=== PATIENT | male | born 1980 | race Caucasian/White ===

== ENCOUNTER 2018-12-06 06:26 | Emergency (ER) | payer BC ==
[2018-12-06 06:39] VITALS: BP 135/94; PULSE 67; RESP 18; TEMP 98.4
[2018-12-06] MEDS ORDERED: cefTRIAXone 250 MG VIAL IM STA (06:47)
[2018-12-06] MEDS ORDERED: AZITHROMYCIN 500 MG TAB PO STA (06:47)
--- NOTE | 2018-12-06 06:48 | ED ---
Male Urogenital HPI - General Chief complaint: Urogenital Stated complaint: "Private Matter" Time Seen by Provider: 12/06/18 06:38 Source: patient, family Mode of arrival: ambulatory Limitations: no limitations - History of Present Illness Initial comments: 38yo male with no significant PMH presenting for cc of dysuria 2 weeks. Patient states he has had dysuria for the past 2 weeks. He thought he just had a urinary tract infection. Patient has recently heard rumors that his significant other is to promiscuous and he is concerned this could be related to an STD. She denies any testicular pain or swelling denies abdominal pain. Denies fevers. Patient denies hematuria or back pain. Remaining ROS (-). Upon arrival patient appears well and remaining ROS (-). - Related Data Home Medications Medication Instructions Recorded Confirmed Dextroamphetamine/Amphetamine 30 mg PO DAILY@1400 12/06/18 12/06/18 [Dextroamp-Amphetamin 30 mg Tab] Lisdexamfetamine Dimesylate 70 mg PO DAILY 12/06/18 12/06/18 [Vyvanse] Omeprazole 40 mg PO DAILY 12/06/18 12/06/18 Allergies Allergy/AdvReac Type Severity Reaction Status Date / Time No Known Allergies Allergy Verified 12/06/18 06:53 Review of Systems ROS Statement: Those systems with pertinent positive or pertinent negative responses have been documented in the HPI. ROS Other: All systems not noted in ROS Statement are negative. Past Medical History Past Medical History: No Reported History History of Any Multi-Drug Resistant Organisms: None Reported Past Surgical History: No Surgical Hx Reported Past Psychological History: No Psychological Hx Reported Smoking Status: Current every day smoker Past Alcohol Use History: Occasional Past Drug Use History: None Reported General Exam - General Exam Comments Initial Comments: General: The patient is awake and alert, in no distress, and does not appear acutely ill. Eye: Pupils are equal, round, extra-ocular movements are intact. No nystagmus. There is normal conjunctiva bilaterally. No signs of icterus. Cardiovascular: There is a regular rate and rhythm. No murmur, rub or gallop is appreciated. Respiratory: Lungs are clear to auscultation, respirations are non-labored, breath sounds are equal. No wheezes, stridor, rales, or rhonchi. Gastrointestinal: Soft, non-distended, non-tender abdomen without masses or organomegaly noted. There is no rebound or guarding present Neurological: A&O x 3. CN II-XII intact grossly, There are no obvious motor or sensory deficits. Coordination appears grossly intact. Speech is normal. Skin: Skin is warm and dry and no rashes or lesions are noted. Psychiatric: Cooperative, appropriate mood & affect, normal judgment. Limitations: no limitations Course Vital Signs 12/06/18 06:37 Temperature 98.4 F Pulse Rate 67 Respiratory 18 Rate Blood Pressure 135/94 O2 Sat by Pulse 97 Oximetry Medical Decision Making - Medical Decision Making Patient presenting to the ER for dysuria x 2 weeks. Concern for STI. UA no signs of infection. No testicular/abdominal/flank complaints. Denies discharge. Treated with ceftriaxone and azithromycin. Patient has no other concerns. Patient discharged appearing well. Return parameters and f/u discussed. - Lab Data Lab Results 12/06/18 Range/Units 06:40 Urine Color Yellow Urine Appearance Clear (Clear) Urine pH 6.5 (5.0-8.0) Ur Specific [place] 1.013 (1.001-1.035) Urine Protein Negative (Negative) Urine Glucose (UA) Negative (Negative) Urine Ketones Negative (Negative) Urine Blood Negative (Negative) Urine Nitrite Negative (Negative) Urine Bilirubin Negative (Negative) Urine Urobilinogen <2.0 (<2.0) mg/dL Ur Leukocyte Esterase Negative (Negative) Disposition Clinical Impression: Dysuria Disposition: HOME SELF-CARE Condition: Good Instructions (If sedation given, give patient instructions): Sexually Transmitted Diseases (ED) Additional Instructions: Please use medication as discussed. Please follow-up with family doctor in the next 2 days. Please return to emergency room if the symptoms increase or worsen or for any other concerns. Is patient prescribed a controlled substance at d/c from ED?: No Referrals: Checo Beltran MD [Primary Care Provider] - 1-2 days Time of Disposition: 06:56
[2018-12-06 06:55] LABS: Appearance,Urine Clear (Clear); Bilirubin,Urine Negative (Negative); Blood,Urine Negative (Negative); Color,Urine Yellow; Glucose,Urine (UA) Negative (Negative); Ketones,Urine Negative (Negative); Leukocyte Esterase,Urine Negative (Negative); Nitrite,Urine Negative (Negative); PH, Urine 6.5 (5.0-8.0); Protein,Urine Negative (Negative); Specific Gravity,Urine 1.013 (1.001-1.035); Urobilinogen,Urine <2.0 mg/dL (<2.0)
[2018-12-07 15:16] LABS: N. gonorrhoeae,PCR Negative (Neg,Equiv); Neisseria Source Urine
[2018-12-07 15:21] LABS: C. trachomatis,PCR Negative (Neg,Equiv); Chlamydia trachomatis Source Urine
== END 2018-12-06 07:00 | disposition home or self-care (01) ==
LOC: EC 06:26
DX: R30.0 Dysuria (principal); F17.200 Nicotine dependence, unspecified, uncomplicated
CPT/HCPCS: 81003; 87491; 87591; 99283; 96372; J0696

== ENCOUNTER 2019-10-22 22:38 | Emergency (ER) | payer OTHER ==
[2019-10-22 23:12] LABS: Basophils % (A) 0 %; Eosinophils # (A) 0.2 k/uL (0-0.7); Eosinophils % (A) 2 %; HCT 44.7 % (39.0-53.0); HGB 15.6 gm/dL (13.0-17.5); Lymphocytes # (A) 0.6 k/uL (1.0-4.8); Lymphocytes % (A) 9 %; MCH 32.8 pg (25.0-35.0); MCHC 34.8 g/dL (31.0-37.0); MCV 94.1 fL (80.0-100.0); Mean Platelet Volume 8.2; Monocytes # (A) 0.3 k/uL (0-1.0); Monocytes % (A) 5 %; Neutrophils # (A) 5.5 k/uL (1.3-7.7); Neutrophils % (A) 83 %; Platelet Count 165 k/uL (150-450); RBC 4.75 m/uL (4.30-5.90); RDW 12.6 % (11.5-15.5); WBC 6.6 k/uL (3.8-10.6)
[2019-10-22 23:21] LABS: ALT 45 U/L (4-49); AST 37 U/L (17-59); African American GFR (CKD) >90 (>60 ml/min/1.73 sqM); Albumin 4.2 g/dL (3.5-5.0); Alkaline Phosphatase 102 U/L (38-126); Anion Gap 8 mmol/L; Blood Urea Nitrogen 18 mg/dL (9-20); Carbon Dioxide 23 mmol/L (22-30); Chloride 105 mmol/L (98-107); Glucose 114 mg/dL (74-99); Non-African American GFR(CKD) 83 (>60 ml/min/1.73 sqM); Potassium 3.7 mmol/L (3.5-5.1); Sodium 136 mmol/L (137-145); Total Bilirubin 0.4 mg/dL (0.2-1.3); Total Protein 6.7 g/dL (6.3-8.2)
--- NOTE | 2019-10-22 23:21 | ED ---
Weakness HPI - General Chief complaint: Weakness Stated complaint: Poss Stroke Time Seen by Provider: 10/22/19 22:59 Source: patient, family Mode of arrival: wheelchair Limitations: no limitations - History of Present Illness Initial comments: This patient is a 39-year-old man who presents to have evaluation for generalized weakness and fatigue. He also has a number of other complaints. 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 He has been drinking a lot of water but noticed that his urine output has been less than he would've expected. He is not feeling urge to urinate. He thinks that he is dehydrated. He has also been having sinus congestion and a mild cough for 2 days. He is having some bilateral hip and leg pains that he describes as mild to moderate, constant, burning, and worse with exertion. He thinks that it may be due to work but he is not sure. MD Complaint: generalized weakness -: days(s) Location: generalized Severity: moderate Quality: other (Burning) Consistency: constant Improves with: none Worsens with: movement - Related Data Home Medications Medication Instructions Recorded Confirmed Dextroamphetamine/Amphetamine 30 mg PO DAILY@1400 12/06/18 12/06/18 [Dextroamp-Amphetamin 30 mg Tab] Lisdexamfetamine Dimesylate 70 mg PO DAILY 12/06/18 12/06/18 [Vyvanse] Omeprazole 40 mg PO DAILY 12/06/18 12/06/18 Allergies Allergy/AdvReac Type Severity Reaction Status Date / Time No Known Allergies Allergy Verified 10/22/19 22:43 Review of Systems ROS Statement: Those systems with pertinent positive or pertinent negative responses have been documented in the HPI. ROS Other: All systems not noted in ROS Statement are negative. Constitutional: Reports: fever, weakness. Denies: chills ENT: Reports: congestion. Denies: ear pain, throat pain, hearing loss Respiratory: Reports: cough. Denies: dyspnea, wheezes, hemoptysis Cardiovascular: Denies: chest pain, palpitations, edema Gastrointestinal: Denies: abdominal pain, nausea, vomiting, diarrhea, constipation Genitourinary: Denies: dysuria, hematuria Musculoskeletal: Denies: back pain Skin: Denies: rash Neurological: Denies: headache, weakness, numbness Past Medical History Past Medical History: No Reported History History of Any Multi-Drug Resistant Organisms: None Reported Past Surgical History: Orthopedic Surgery Additional Past Surgical History / Comment(s): left shoulder surgery/ nose surgery/ left knee surgery Past Psychological History: No Psychological Hx Reported Smoking Status: Former smoker Past Alcohol Use History: Occasional Past Drug Use History: None Reported General Exam Limitations: no limitations General appearance: alert, in no apparent distress Head exam: Present: atraumatic, normocephalic Eye exam: Present: normal appearance. Absent: scleral icterus, conjunctival injection ENT exam: Present: normal oropharynx Neck exam: Present: normal inspection, full ROM Respiratory exam: Present: normal lung sounds bilaterally. Absent: respiratory distress, wheezes, rales, rhonchi, stridor Cardiovascular Exam: Present: regular rate, normal rhythm, normal heart sounds. Absent: systolic murmur, diastolic murmur, rubs, gallop GI/Abdominal exam: Present: soft. Absent: distended, tenderness, guarding, rebound, rigid Extremities exam: Present: normal inspection, normal capillary refill. Absent: pedal edema, calf tenderness Back exam: Present: normal inspection. Absent: CVA tenderness (R), CVA tenderne ss (L) Neurological exam: Present: alert Skin exam: Present: warm, dry, intact, normal color. Absent: rash Course Vital Signs 10/22/19 10/23/19 10/23/19 22:41 00:17 01:00 Temperature 98.6 F Pulse Rate 94 66 68 Respiratory 20 17 17 Rate Blood Pressure 135/72 128/81 144/88 O2 Sat by Pulse 94 L 98 96 Oximetry Medical Decision Making - Lab Data Result diagrams: 10/22/19 22:50 10/22/19 22:50 Lab Results 10/22/19 10/22/19 10/22/19 Range/Units 22:50 22:50 22:50 WBC 6.6 (3.8-10.6) k/uL RBC 4.75 (4.30-5.90) m/uL Hgb 15.6 (13.0-17.5) gm/dL Hct 44.7 (39.0-53.0) % MCV 94.1 (80.0-100.0) fL MCH 32.8 (25.0-35.0) pg MCHC 34.8 (31.0-37.0) g/dL RDW 12.6 (11.5-15.5) % Plt Count 165 (150-450) k/uL Neutrophils % 83 % Lymphocytes % 9 % Monocytes % 5 % Eosinophils % 2 % Basophils % 0 % Neutrophils # 5.5 (1.3-7.7) k/uL Lymphocytes # 0.6 L (1.0-4.8) k/uL Monocytes # 0.3 (0-1.0) k/uL Eosinophils # 0.2 (0-0.7) k/uL Basophils # 0.0 (0-0.2) k/uL Sodium 136 L (137-145) mmol/L Potassium 3.7 (3.5-5.1) mmol/L Chloride 105 (98-107) mmol/L Carbon Dioxide 23 (22-30) mmol/L Anion Gap 8 mmol/L BUN 18 (9-20) mg/dL Creatinine 1.12 (0.66-1.25) mg/dL Est GFR (CKD-EPI)AfAm >90 (>60 ml/min/1.73 sqM) Est GFR (CKD-EPI)NonAf 83 (>60 ml/min/1.73 sqM) Glucose 114 H (74-99) mg/dL Calcium 9.0 (8.4-10.2) mg/dL Magnesium 2.3 (1.6-2.3) mg/dL Total Bilirubin 0.4 (0.2-1.3) mg/dL AST 37 (17-59) U/L ALT 45 (4-49) U/L Alkaline Phosphatase 102 (38-126) U/L Total Protein 6.7 (6.3-8.2) g/dL Albumin 4.2 (3.5-5.0) g/dL Urine Color Urine Appearance (Clear) Urine pH (5.0-8.0) Ur Specific [place] (1.001-1.035) Urine Protein (Negative) Urine Glucose (UA) (Negative) Urine Ketones (Negative) Urine Blood (Negative) Urine Nitrite (Negative) Urine Bilirubin (Negative) Urine Urobilinogen (<2.0) mg/dL Ur Leukocyte Esterase (Negative) 10/23/19 Range/Units 02:24 WBC (3.8-10.6) k/uL RBC (4.30-5.90) m/uL Hgb (13.0-17.5) gm/dL Hct (39.0-53.0) % MCV (80.0-100.0) fL MCH (25.0-35.0) pg MCHC (31.0-37.0) g/dL RDW (11.5-15.5) % Plt Count (150-450) k/uL Neutrophils % % Lymphocytes % % Monocytes % % Eosinophils % % Basophils % % Neutrophils # (1.3-7.7) k/uL Lymphocytes # (1.0-4.8) k/uL Monocytes # (0-1.0) k/uL Eosinophils # (0-0.7) k/uL Basophils # (0-0.2) k/uL Sodium (137-145) mmol/L Potassium (3.5-5.1) mmol/L Chloride (98-107) mmol/L Carbon Dioxide (22-30) mmol/L Anion Gap mmol/L BUN (9-20) mg/dL Creatinine (0.66-1.25) mg/dL Est GFR (CKD-EPI)AfAm (>60 ml/min/1.73 sqM) Est GFR (CKD-EPI)NonAf (>60 ml/min/1.73 sqM) Glucose (74-99) mg/dL Calcium (8.4-10.2) mg/dL Magnesium (1.6-2.3) mg/dL Total Bilirubin (0.2-1.3) mg/dL AST (17-59) U/L ALT (4-49) U/L Alkaline Phosphatase (38-126) U/L Total Protein (6.3-8.2) g/dL Albumin (3.5-5.0) g/dL Urine Color Light Yellow Urine Appearance Clear (Clear) Urine pH 5.5 (5.0-8.0) Ur Specific [place] 1.012 (1.001-1.035) Urine Protein Negative (Negative) Urine Glucose (UA) Negative (Negative) Urine Ketones Negative (Negative) Urine Blood Negative (Negative) Urine Nitrite Negative (Negative) Urine Bilirubin Negative (Negative) Urine Urobilinogen <2.0 (<2.0) mg/dL Ur Leukocyte Esterase Negative (Negative) Disposition Clinical Impression: Heat exhaustion Disposition: HOME SELF-CARE Condition: Good Instructions (If sedation given, give patient instructions): Heat Exhaustion (ED) Is patient prescribed a controlled substance at d/c from ED?: No Referrals: Checo Beltran MD [Primary Care Provider] - 1-2 days
[2019-10-22] MEDS ORDERED: SODIUM CHLORIDE 0.9% 1,000 ML IV ONE (23:36)
[2019-10-22] MEDS ORDERED: KETOROLAC 30 MG/ML 1 ML VIAL IVP STA (23:36)
--- NOTE | 2019-10-23 00:02 | XR ---
EXAMINATION TYPE: XR chest 2V DATE OF EXAM: 10/22/2019 COMPARISON: NONE HISTORY: Fever TECHNIQUE: 2 views FINDINGS: Heart and mediastinum are normal. Lungs are clear. Diaphragm is normal. Bony thorax appears normal. There are screws in the left glenoid process of the scapula. IMPRESSION: No active cardiopulmonary disease. Normal heart.
[2019-10-23] MEDS ORDERED: SODIUM CHLORIDE 0.9% 1,000 ML IV ONE (01:02)
[2019-10-23 02:34] LABS: Appearance,Urine Clear (Clear); Bilirubin,Urine Negative (Negative); Blood,Urine Negative (Negative); Color,Urine Light Yellow; Glucose,Urine (UA) Negative (Negative); Ketones,Urine Negative (Negative); Leukocyte Esterase,Urine Negative (Negative); Nitrite,Urine Negative (Negative); PH, Urine 5.5 (5.0-8.0); Protein,Urine Negative (Negative); Specific Gravity,Urine 1.012 (1.001-1.035); Urobilinogen,Urine <2.0 mg/dL (<2.0)
[2019-10-23] MEDS ORDERED: LORATADINE-PSEUDOEPH 5-120 MG 1 EACH TAB.ER.12H PO STA (03:30)
[2019-10-23 04:07] VITALS: BP 124/88; PULSE 55; RESP 18; TEMP 98.7
== END 2019-10-23 04:05 | disposition home or self-care (01) ==
LOC: EC 22:38
DX: T67.5XXA Heat exhaustion, unspecified, initial encounter (principal); R50.9 Fever, unspecified; R05 Cough; R09.89 Other specified symptoms and signs involving the circulatory and respiratory systems; M25.552 Pain in left hip; M25.551 Pain in right hip; Z87.891 Personal history of nicotine dependence; Z20.828 Contact with and (suspected) exposure to other viral communicable diseases
CPT/HCPCS: 36415; 80053; 83735; 85025; 81003; 71046; 99285; 96374; 96361 ×4; U0003; J1885

== ENCOUNTER 2020-04-29 08:30 | Emergency (ER) | payer BC, OTHER ==
[2020-04-29 08:40] VITALS: BP 145/93; PULSE 71; RESP 18; TEMP 98.3
--- NOTE | 2020-04-29 08:52 | ED ---
General Adult HPI - General Chief complaint: Back Pain/Injury Stated complaint: Back Pain/Pinched Nerve Time Seen by Provider: 04/29/20 08:39 Source: patient, RN notes reviewed Mode of arrival: ambulatory Limitations: no limitations - History of Present Illness Initial comments: Patient is a 39-year-old male presented to the emergency room today with chief complaint of increased lower back pain over the last 2 weeks. Patient does admit that he is having some pain in the right side lower back that radiates into the right leg. He does not that it radiates down approximately the back of the right knee. He denies any bowel or bladder incontinence retention. Denies any saddle anesthesia. Patient does admit that the pain is reproduced with certain movements. He states is comfortable at rest. His been using ibuprofen at home with little relief and he states that he did have a few [place] as well which seemed to help with the pain. Patient does admit that he remembers slipping and falling at work landing on his blood approximately 2 weeks ago of the same today he was lifting a gun safe at home when he twisted and felt increased pain. He denies any other complaints or any other symptoms at this time. Patient denies any recent fever, chills, shortness of breath, chest pain, abdominal pain, nausea or vomiting, headaches or visual changes, or any other complaints. - Related Data Home Medications Medication Instructions Recorded Confirmed Dextroamphetamine/Amphetamine 30 mg PO DAILY@1400 12/06/18 12/06/18 [Dextroamp-Amphetamin 30 mg Tab] Lisdexamfetamine Dimesylate 70 mg PO DAILY 12/06/18 12/06/18 [Vyvanse] Omeprazole 40 mg PO DAILY 12/06/18 12/06/18 Previous Rx's Medication Instructions Recorded Naproxen [Naprosyn] 500 mg PO BID #20 tablet 04/29/20 methocarbamoL [Robaxin] 1,000 mg PO TID PRN 5 Days #30 tab 04/29/20 Allergies Allergy/AdvReac Type Severity Reaction Status Date / Time No Known Allergies Allergy Verified 04/29/20 08:40 Review of Systems ROS Statement: Those systems with pertinent positive or pertinent negative responses have been documented in the HPI. ROS Other: All systems not noted in ROS Statement are negative. Past Medical History Past Medical History: GERD/Reflux History of Any Multi-Drug Resistant Organisms: None Reported Past Surgical History: Orthopedic Surgery Additional Past Surgical History / Comment(s): left shoulder surgery/ nose surgery/ left knee surgery, ankle Past Psychological History: No Psychological Hx Reported Smoking Status: Never smoker Past Alcohol Use History: Daily Past Drug Use History: None Reported General Exam - General Exam Comments Initial Comments: General: The patient is awake and alert, in no distress, and does not appear acutely ill. Eye: Pupils are equal, round and reactive to light, extra-ocular movements are intact. No nystagmus. There is normal conjunctiva bilaterally. No signs of icterus. Neck: The neck is supple, there is no tenderness or JVD. Respiratory: respirations are non-labored, breath sounds are equal. Musculoskeletal: Normal appearance of the thoracic lumbar spine with no step-off deformity. Patient does have tenderness to the paravertebral area of the lumbar spine on the right. Patient has full range of motion. Strength is 5/5. Sensations are intact. Normal gait. Neurological: A&O x 3. CN II-XII intact, There are no obvious motor or sensory deficits. Coordination appears grossly intact. Speech is normal. Skin: Skin is warm and dry and no rashes or lesions are noted. Psychiatric: Cooperative, appropriate mood & affect, normal judgment. Limitations: no limitations Course Vital Signs 04/29/20 08:36 Temperature 98.3 F Pulse Rate 71 Respiratory 18 Rate Blood Pressure 145/93 O2 Sat by Pulse 96 Oximetry Medical Decision Making - Medical Decision Making Patient's x-ray reviewed is negative for any acute abnormality. Results were discussed with the patient. Patient's pain is reproduced with certain movements. He is tender in the paravertebral areas. Cell to be musculoskeletal. Patient will be continued be treated with anti-inflammatories, muscle relaxer. Patient is advised follow-up with family physician. Advised return if any symptoms increase worsen. Surgeries (her stay and is in agreement Disposition Clinical Impression: Acute low back pain, Acute lumbar radiculopathy Disposition: HOME SELF-CARE Condition: Good Instructions (If sedation given, give patient instructions): Acute Low Back Pain (ED) Prescriptions: Naproxen [Naprosyn] 500 mg PO BID #20 tablet methocarbamoL [Robaxin] 1,000 mg PO TID PRN 5 Days #30 tab PRN Reason: pain Is patient prescribed a controlled substance at d/c from ED?: No Referrals: Checo Beltran MD [Primary Care Provider] - 1-2 days Time of Disposition: 09:33
--- NOTE | 2020-04-29 09:09 | XR ---
EXAMINATION TYPE: XR lumbar spine 2 or 3V DATE OF EXAM: 04/29/2020 Comparison: None Clinical History: 39-year-old male pain Findings: 5 lumbar type vertebral bodies. Mild degenerative disc disease with disc space narrowing throughout. Hypertrophic facet arthropathy mid to lower lumbar spine. Impression: Mild degenerative disc disease throughout. Hypertrophic facet arthropathy mid to lower lumbar spine. No vertebral compression collapse or malalignment.
== END 2020-04-29 09:41 | disposition home or self-care (01) ==
LOC: EC 08:30
DX: M54.16 Radiculopathy, lumbar region (principal); K21.9 Gastro-esophageal reflux disease without esophagitis; Z79.899 Other long term (current) drug therapy; X50.0XXA Overexertion from strenuous movement or load, initial encounter; Y92.69 Other specified industrial and construction area as the place of occurrence of the external cause; Y99.0 Civilian activity done for income or pay
CPT/HCPCS: 72100; 99283

== ENCOUNTER 2020-05-03 06:16 | Emergency (ER) | payer BC, OTHER ==
[2020-05-03 06:23] VITALS: TEMP 97.5
[2020-05-03] MEDS ORDERED: KETOROLAC 15 MG/ML 1 ML VIAL IVP STA (06:30)
[2020-05-03] MEDS ORDERED: HYDROmorphone 1 MG/ML 1 ML SYRINGE IVP STA ×2 (06:30→07:25)
[2020-05-03] MEDS ORDERED: SODIUM CHLORIDE 0.9% 1,000 ML IV STA (06:30)
[2020-05-03] MEDS ORDERED: ONDANSETRON 4 MG/2 ML VIAL IVP STA (06:30)
[2020-05-03] MEDS ORDERED: SODIUM CHLORIDE 0.9% 500 ML 500 ML IV STA (06:30)
[2020-05-03 06:47] LABS: Basophils # (A) 0.1 k/uL (0-0.2); Basophils % (A) 1 %; Eosinophils # (A) 0.2 k/uL (0-0.7); Eosinophils % (A) 2 %; HCT 45.7 % (39.0-53.0); HGB 15.8 gm/dL (13.0-17.5); Lymphocytes # (A) 1.5 k/uL (1.0-4.8); Lymphocytes % (A) 24 %; MCH 32.1 pg (25.0-35.0); MCHC 34.6 g/dL (31.0-37.0); MCV 92.8 fL (80.0-100.0); Mean Platelet Volume 7.6; Monocytes # (A) 0.4 k/uL (0-1.0); Monocytes % (A) 7 %; Neutrophils # (A) 3.9 k/uL (1.3-7.7); Neutrophils % (A) 64 %; Platelet Count 181 k/uL (150-450); RBC 4.92 m/uL (4.30-5.90); RDW 11.7 % (11.5-15.5); WBC 6.1 k/uL (3.8-10.6)
--- NOTE | 2020-05-03 06:47 | ED ---
Abdominal Pain HPI - General Chief Complaint: Abdominal Pain Stated Complaint: Abd Pain Time Seen by Provider: 05/03/20 06:19 Source: patient, EMS Mode of arrival: EMS Limitations: no limitations - History of Present Illness Initial Comments: This a 39-year-old male presents emergency Department chief complaint of severe right lower quadrant abdominal pain. Patient states started suddenly at 4 AM this morning. Patient states that makes it feel better or worse. Patient's nausea no vomiting. Patient states that he was given fentanyl by EMS states t hat she didn't help. Patient denies any back pain, dysuria, hematuria, diarrhea constipation no prior abdominal surgeries. Patient is not dyspneic back pain was seen in emergency department she days ago. - Related Data Home Medications Medication Instructions Recorded Confirmed Dextroamphetamine/Amphetamine 30 mg PO DAILY@1400 12/06/18 05/03/20 [Dextroamp-Amphetamin 30 mg Tab] Lisdexamfetamine Dimesylate 70 mg PO DAILY 12/06/18 05/03/20 [Vyvanse] Omeprazole 40 mg PO DAILY 12/06/18 05/03/20 Previous Rx's Medication Instructions Recorded Naproxen [Naprosyn] 500 mg PO BID #20 tablet 04/29/20 methocarbamoL [Robaxin] 1,000 mg PO TID PRN 5 Days #30 tab 04/29/20 HYDROcodone/APAP 7.5-325MG [[place] 1 tab PO Q6HR PRN 3 Days #12 tab 05/03/20 7.5-325] Ketorolac [Toradol] 10 mg PO Q8HR #15 tab 05/03/20 Ondansetron Odt [Zofran Odt] 4 mg PO Q8HR PRN #10 tab 05/03/20 Tamsulosin [Flomax] 0.4 mg PO DAILY #7 cap 05/03/20 Allergies Allergy/AdvReac Type Severity Reaction Status Date / Time No Known Allergies Allergy Verified 05/03/20 06:58 Review of Systems ROS Statement: Those systems with pertinent positive or pertinent negative responses have been documented in the HPI. ROS Other: All systems not noted in ROS Statement are negative. Past Medical History Past Medical History: GERD/Reflux History of Any Multi-Drug Resistant Organisms: None Reported Past Surgical History: Orthopedic Surgery Additional Past Surgical History / Comment(s): left shoulder surgery/ nose surgery/ left knee surgery, ankle Past Psychological History: ADD/ADHD Smoking Status: Never smoker Past Alcohol Use History: Daily Past Drug Use History: None Reported General Exam Limitations: no limitations General appearance: alert, in no apparent distress Eye exam: Present: normal appearance, PERRL, EOMI. Absent: scleral icterus, conjunctival injection, periorbital swelling ENT exam: Present: normal exam, mucous membranes moist Neck exam: Present: normal inspection, full ROM. Absent: tenderness, meningismus, lymphadenopathy Respiratory exam: Present: normal lung sounds bilaterally. Absent: respiratory distress, wheezes, rales, rhonchi, stridor Cardiovascular Exam: Present: regular rate, normal rhythm, normal heart sounds. Absent: systolic murmur, diastolic murmur, rubs, gallop, clicks GI/Abdominal exam: Present: soft, tenderness (Moderate right lower quadrant tenderness), normal bowel sounds. Absent: distended, guarding, rebound, rigid Back exam: Absent: CVA tenderness (R), CVA tenderness (L) Neurological exam: Present: alert, oriented X3 Skin exam: Present: warm, dry, intact, normal color. Absent: rash Course Vital Signs 05/03/20 05/03/20 05/03/20 06:18 07:48 09:12 Temperature 97.5 F L Pulse Rate 54 L 47 L 49 L Respiratory 22 18 18 Rate Blood Pressure 137/83 136/86 137/83 O2 Sat by Pulse 100 97 97 Oximetry 05/03/20 11:25 Temperature Pulse Rate 74 Respiratory 16 Rate Blood Pressure 144/86 O2 Sat by Pulse 98 Oximetry Medical Decision Making - Medical Decision Making 39-year-old male presented for flank pain. Patient does have evidence of eye millimeter ureteral calculi patient's pain is improved labs reviewedno abnormalities Patient be discharged in stable condition. - Lab Data Result diagrams: 05/03/20 06:35 05/03/20 06:35 Lab Results 05/03/20 05/03/20 05/03/20 Range/Units 06:35 06:35 06:35 WBC 6.1 (3.8-10.6) k/uL RBC 4.92 (4.30-5.90) m/uL Hgb 15.8 (13.0-17.5) gm/dL Hct 45.7 (39.0-53.0) % MCV 92.8 (80.0-100.0) fL MCH 32.1 (25.0-35.0) pg MCHC 34.6 (31.0-37.0) g/dL RDW 11.7 (11.5-15.5) % Plt Count 181 (150-450) k/uL MPV 7.6 Neutrophils % 64 % Lymphocytes % 24 % Monocytes % 7 % Eosinophils % 2 % Basophils % 1 % Neutrophils # 3.9 (1.3-7.7) k/uL Lymphocytes # 1.5 (1.0-4.8) k/uL Monocytes # 0.4 (0-1.0) k/uL Eosinophils # 0.2 (0-0.7) k/uL Basophils # 0.1 (0-0.2) k/uL Sodium 136 L (137-145) mmol/L Potassium 4.1 (3.5-5.1) mmol/L Chloride 105 (98-107) mmol/L Carbon Dioxide 26 (22-30) mmol/L Anion Gap 5 mmol/L BUN 18 (9-20) mg/dL Creatinine 1.14 (0.66-1.25) mg/dL Est GFR (CKD-EPI)AfAm >90 (>60 ml/min/1.73 sqM) Est GFR (CKD-EPI)NonAf 81 (>60 ml/min/1.73 sqM) Glucose 107 H (74-99) mg/dL Plasma Lactic Acid Maxime 1.1 (0.7-2.0) mmol/L Calcium 9.1 (8.4-10.2) mg/dL Total Bilirubin 1.2 (0.2-1.3) mg/dL AST 29 (17-59) U/L ALT 32 (4-49) U/L Alkaline Phosphatase 83 (38-126) U/L Total Protein 6.7 (6.3-8.2) g/dL Albumin 4.0 (3.5-5.0) g/dL Amylase 45 (30-110) U/L Lipase 82 (23-300) U/L Urine Color Urine Appearance (Clear) Urine pH (5.0-8.0) Ur Specific [place] (1.001-1.035) Urine Protein (Negative) Urine Glucose (UA) (Negative) Urine Ketones (Negative) Urine Blood (Negative) Urine Nitrite (Negative) Urine Bilirubin (Negative) Urine Urobilinogen (<2.0) mg/dL Ur Leukocyte Esterase (Negative) Urine RBC (0-5) /hpf Urine WBC (0-5) /hpf Urine Bacteria (None) /hpf Urine Mucus (None) /hpf 05/03/20 Range/Units 11:29 WBC (3.8-10.6) k/uL RBC (4.30-5.90) m/uL Hgb (13.0-17.5) gm/dL Hct (39.0-53.0) % MCV (80.0-100.0) fL MCH (25.0-35.0) pg MCHC (31.0-37.0) g/dL RDW (11.5-15.5) % Plt Count (150-450) k/uL MPV Neutrophils % % Lymphocytes % % Monocytes % % Eosinophils % % Basophils % % Neutrophils # (1.3-7.7) k/uL Lymphocytes # (1.0-4.8) k/uL Monocytes # (0-1.0) k/uL Eosinophils # (0-0.7) k/uL Basophils # (0-0.2) k/uL Sodium (137-145) mmol/L Potassium (3.5-5.1) mmol/L Chloride (98-107) mmol/L Carbon Dioxide (22-30) mmol/L Anion Gap mmol/L BUN (9-20) mg/dL Creatinine (0.66-1.25) mg/dL Est GFR (CKD-EPI)AfAm (>60 ml/min/1.73 sqM) Est GFR (CKD-EPI)NonAf (>60 ml/min/1.73 sqM) Glucose (74-99) mg/dL Plasma Lactic Acid Maxime (0.7-2.0) mmol/L Calcium (8.4-10.2) mg/dL Total Bilirubin (0.2-1.3) mg/dL AST (17-59) U/L ALT (4-49) U/L Alkaline Phosphatase (38-126) U/L Total Protein (6.3-8.2) g/dL Albumin (3.5-5.0) g/dL Amylase (30-110) U/L Lipase (23-300) U/L Urine Color Yellow Urine Appearance Clear (Clear) Urine pH 5.5 (5.0-8.0) Ur Specific [place] 1.021 (1.001-1.035) Urine Protein Trace H (Negative) Urine Glucose (UA) Negative (Negative) Urine Ketones Negative (Negative) Urine Blood Trace H (Negative) Urine Nitrite Negative (Negative) Urine Bilirubin Negative (Negative) Urine Urobilinogen <2.0 (<2.0) mg/dL Ur Leukocyte Esterase Negative (Negative) Urine RBC 5 (0-5) /hpf Urine WBC 1 (0-5) /hpf Urine Bacteria Rare H (None) /hpf Urine Mucus Occasional H (None) /hpf Disposition Clinical Impression: Right ureteral calculus Disposition: HOME SELF-CARE Condition: Stable Instructions (If sedation given, give patient instructions): Kidney Stones (ED) Additional Instructions: Please return to the Emergency Department if symptoms worsen or any other concerns. Prescriptions: Tamsulosin [Flomax] 0.4 mg PO DAILY #7 cap HYDROcodone/APAP 7.5-325MG [[place] 7.5-325] 1 tab PO Q6HR PRN 3 Days #12 tab PRN Reason: pain Ketorolac [Toradol] 10 mg PO Q8HR #15 tab Ondansetron Odt [Zofran Odt] 4 mg PO Q8HR PRN #10 tab PRN Reason: Nausea Is patient prescribed a controlled substance at d/c from ED?: Yes When asked, does pt state using other controlled substances?: Yes If prescribed controlled substance>3 days was MAPS reviewed?: Prescribed <3 Days If opioid is for acute pain is fill amount 7 days or less?: Yes If Rx opioid, was Start Talking consent form obtained?: Yes Referrals: Checo Beltran MD [Primary Care Provider] - 1-2 days Endy Rasmussen MD [STAFF PHYSICIAN] - 1-2 days Time of Disposition: 11:55
[2020-05-03 07:00] LABS: ALT 32 U/L (4-49); AST 29 U/L (17-59); African American GFR (CKD) >90 (>60 ml/min/1.73 sqM); Alkaline Phosphatase 83 U/L (38-126); Amylase 45 U/L (30-110); Anion Gap 5 mmol/L; Blood Urea Nitrogen 18 mg/dL (9-20); Calcium 9.1 mg/dL (8.4-10.2); Carbon Dioxide 26 mmol/L (22-30); Chloride 105 mmol/L (98-107); Glucose 107 mg/dL (74-99); Lipase 82 U/L (23-300); Non-African American GFR(CKD) 81 (>60 ml/min/1.73 sqM); Potassium 4.1 mmol/L (3.5-5.1); Sodium 136 mmol/L (137-145); Total Bilirubin 1.2 mg/dL (0.2-1.3); Total Protein 6.7 g/dL (6.3-8.2)
--- NOTE | 2020-05-03 07:19 | CT ---
EXAMINATION TYPE: CT abdomen pelvis wo con DATE OF EXAM: 05/03/2020 COMPARISON: None HISTORY: 39-year-old male RLQ pain since 0300 CT DLP: 1158.4 mGycm. Automated exposure control for dose reduction was used. TECHNIQUE: Contiguous axial scanning of the abdomen and pelvis without IV contrast. Coronal and sagit cole reconstructions performed. FINDINGS: Heart normal size without pericardial effusion. Some strandy dependent atelectasis in the visualized lung bases. Circumferential wall thickening distal esophagus is noted. Noncontrast appearance of the liver, gallbladder, adrenal glands, left kidney, and pancreas appear wi thin normal limits. Spleen mildly enlarged at 14.0 cm measured on coronal series image 62. 5 mm calculus in the proximal third right ureter with mild pelvocaliectasis. No dilated small bowel, free fluid, free air. Scattered small mesenteric lymph nodes throughout the a bdomen. Normal appendix. Mild stool burden. No pericolonic inflammatory change. Bladder nondistended. Some central prostatic calcification. No abnormal fluid collection in the pelvi s or pelvic lymphadenopathy Bones: Mild degenerative spurring of the hips. Facet arthropathy lower lumbar spine. Mild degenerativ e disc disease lower lumbar spine. IMPRESSION: 1. A 5 mm calculus in the upper third right ureter with minimal early hydronephrosis. 2. Circumferential wall thickening distal esophagus could reflect esophagitis versus a small underly ing, collapsed hiatal hernia. Correlate with patient's symptoms. 3. Mild splenomegaly at 14.0 cm. 4. Normal appendix.
[2020-05-03] MEDS ORDERED: TAMSULOSIN 0.4 MG CAP.ER.24H PO STA (07:25)
[2020-05-03] MEDS ORDERED: SODIUM CHLORIDE 0.9% 1,000 ML IV ONE (08:36)
[2020-05-03] MEDS ORDERED: HYDROcodone/APAP 7.5-325MG 1 EACH TAB PO ONE (10:29)
[2020-05-03 11:43] LABS: Appearance,Urine Clear (Clear); Bacteria,Urine Rare /hpf; Bilirubin,Urine Negative (Negative); Blood,Urine Trace (Negative); Color,Urine Yellow; Glucose,Urine (UA) Negative (Negative); Ketones,Urine Negative (Negative); Leukocyte Esterase,Urine Negative (Negative); Mucus,Urine Occasional /hpf; Nitrite,Urine Negative (Negative); PH, Urine 5.5 (5.0-8.0); Protein,Urine Trace (Negative); RBC,Urine 5 /hpf (0-5); Specific Gravity,Urine 1.021 (1.001-1.035); Urobilinogen,Urine <2.0 mg/dL (<2.0); WBC,Urine 1 /hpf (0-5)
[2020-05-03 12:05] VITALS: BP 142/64; PULSE 77; RESP 20
== END 2020-05-03 12:07 | disposition home or self-care (01) ==
LOC: EC 06:16
DX: N20.1 Calculus of ureter (principal); K21.9 Gastro-esophageal reflux disease without esophagitis; F90.9 Attention-deficit hyperactivity disorder, unspecified type; Z79.899 Other long term (current) drug therapy; Z79.1 Long term (current) use of non-steroidal anti-inflammatories (NSAID)
CPT/HCPCS: 99284 ×2; 96374 ×2; 96375 ×3; 96376 ×2; 96361 ×4; 36415; 80053; 82150; 83605; 83690; 85025; 81001; 74176; J2405; J1170; J1885

== ENCOUNTER 2020-05-06 08:24 | Emergency (ER) | payer BC, OTHER ==
[2020-05-06 08:29] VITALS: RESP 18; TEMP 98.1
[2020-05-06] MEDS ORDERED: KETOROLAC 15 MG/ML 1 ML VIAL IVP STA (08:50)
[2020-05-06] MEDS ORDERED: SODIUM CHLORIDE 0.9% 1,000 ML IV STA (08:50)
[2020-05-06 09:12] LABS: Basophils % (A) 1 %; Eosinophils # (A) 0.1 k/uL (0-0.7); Eosinophils % (A) 1 %; HCT 44.7 % (39.0-53.0); HGB 14.9 gm/dL (13.0-17.5); Lymphocytes # (A) 1.4 k/uL (1.0-4.8); Lymphocytes % (A) 25 %; MCH 31.2 pg (25.0-35.0); MCHC 33.4 g/dL (31.0-37.0); MCV 93.5 fL (80.0-100.0); Mean Platelet Volume 8.1; Monocytes # (A) 0.3 k/uL (0-1.0); Monocytes % (A) 6 %; Neutrophils # (A) 3.6 k/uL (1.3-7.7); Neutrophils % (A) 66 %; Platelet Count 166 k/uL (150-450); RBC 4.78 m/uL (4.30-5.90); RDW 12.4 % (11.5-15.5); WBC 5.4 k/uL (3.8-10.6)
[2020-05-06 09:27] LABS: Calcium 9.2 mg/dL (8.4-10.2); Potassium 4.5 mmol/L (3.5-5.1)
[2020-05-06 09:42] LABS: Appearance,Urine Clear (Clear); Bacteria,Urine Rare /hpf; Bilirubin,Urine Negative (Negative); Blood,Urine Small (Negative); Color,Urine Yellow; Glucose,Urine (UA) Negative (Negative); Ketones,Urine Negative (Negative); Leukocyte Esterase,Urine Negative (Negative); Mucus,Urine Rare /hpf; Nitrite,Urine Negative (Negative); PH, Urine 5.5 (5.0-8.0); Protein,Urine Negative (Negative); RBC,Urine 28 /hpf (0-5); Specific Gravity,Urine 1.019 (1.001-1.035); Urobilinogen,Urine <2.0 mg/dL (<2.0); WBC,Urine 2 /hpf (0-5)
--- NOTE | 2020-05-06 09:43 | XR ---
KUB HISTORY: Pain, right-sided kidney stones Correlation CT scan 05/03/2020, frontal KUB submitted on 2 images The lung bases are clear. Large amount retained fecal debris present within the colon. There is no ev ident pneumoperitoneum or bowel obstruction. Right ureteral calculus not identified with certainty. P unctate calcific density is present in the right upper quadrant which could represent bowel content. IMPRESSION: No acute abnormalities evident
--- NOTE | 2020-05-06 10:21 | US ---
EXAMINATION TYPE: US kidneys/renal and bladder DATE OF EXAM: 05/06/2020 COMPARISON: CT 05/03/2020 CLINICAL HISTORY: flank pain. Pain hx of stones. EXAM MEASUREMENTS: Right Kidney: 10.3 x 5.3 x 5.1 cm Left Kidney: 10.9 x 4.5 x 4.7 cm Right Kidney: No hydronephrosis or masses seen Left Kidney: No hydronephrosis or masses seen Bladder: Not fully distended Bilateral Jets seen: No There is no evidence for hydronephrosis at this point in time. No nephrolithiasis is seen. No tiffanie s are identified. Cortical medullary differentiation is maintained. IMPRESSION: Renal sizes as described, hydronephrosis seen on prior CT has resolved within the right kidney
--- NOTE | 2020-05-06 10:40 | ED ---
General Adult HPI - General Chief complaint: Abdominal Pain Stated complaint: kidney stone Time Seen by Provider: 05/06/20 08:37 Source: patient, RN notes reviewed, old records reviewed Mode of arrival: ambulatory Limitations: no limitations - History of Present Illness Initial comments: Patient is a 39-year-old male presented to the emergency room today with a chief complaint of some pain in the right flank. He does admit that he was seen here 2 days ago was diagnosed with kidney stone. Patient states that he was having difficult time with urination today so he came back here to the ER. He does admit that he's been taking his pain medication at home has been somewhat controlled. Patient denies any other complaints or symptoms at this time. Patient denies any recent fever, chills, shortness of breath, chest pain, nausea or vomiting, numbness or tingling, headaches or visual changes, or any other complaints. - Related Data Home Medications Medication Instructions Recorded Confirmed Dextroamphetamine/Amphetamine 30 mg PO DAILY@1400 12/06/18 05/06/20 [Dextroamp-Amphetamin 30 mg Tab] Lisdexamfetamine Dimesylate 70 mg PO DAILY 12/06/18 05/06/20 [Vyvanse] Omeprazole 40 mg PO DAILY 12/06/18 05/06/20 Previous Rx's Medication Instructions Recorded Naproxen [Naprosyn] 500 mg PO BID #20 tablet 04/29/20 methocarbamoL [Robaxin] 1,000 mg PO TID PRN 5 Days #30 tab 04/29/20 HYDROcodone/APAP 7.5-325MG [[place] 1 tab PO Q6HR PRN 3 Days #12 tab 05/03/20 7.5-325] Ketorolac [Toradol] 10 mg PO Q8HR #15 tab 05/03/20 Ondansetron Odt [Zofran Odt] 4 mg PO Q8HR PRN #10 tab 05/03/20 Tamsulosin [Flomax] 0.4 mg PO DAILY #7 cap 05/03/20 Allergies Allergy/AdvReac Type Severity Reaction Status Date / Time No Known Allergies Allergy Verified 05/06/20 09:37 Review of Systems ROS Statement: Those systems with pertinent positive or pertinent negative responses have been documented in the HPI. ROS Other: All systems not noted in ROS Statement are negative. Past Medical History Past Medical History: GERD/Reflux Additional Past Medical History / Comment(s): kidney stone History of Any Multi-Drug Resistant Organisms: None Reported Past Surgical History: Orthopedic Surgery Additional Past Surgical History / Comment(s): left shoulder surgery/ nose surgery/ left knee surgery, ankle Past Psychological History: ADD/ADHD Smoking Status: Never smoker Past Alcohol Use History: Daily Past Drug Use History: None Reported General Exam - General Exam Comments Initial Comments: General: The patient is awake and alert, in no distress, and does not appear acutely ill. Eye: extra-ocular movements are intact. No nystagmus. There is normal conjunctiva bilaterally. No signs of icterus. Ears, nose, mouth and throat: There are moist mucous membranes and no oral lesions. Neck: The neck is supple, there is no tenderness or JVD. Cardiovascular: There is a regular rate and rhythm. No murmur, rub or gallop is appreciated. Respiratory: Lungs are clear to auscultation, respirations are non-labored, breath sounds are equal. No wheezes, stridor, rales, or rhonchi. Gastrointestinal: Admits soft on palpation. No tenderness. No rebound, guarding or CVA tenderness. Musculoskeletal: Normal ROM, no tenderness. Strength 5/5. Sensation intact. Pulses equal bilaterally 2+. Neurological: A&O x 3. CN II-XII intact, There are no obvious motor or sensory deficits. Coordination appears grossly intact. Speech is normal. Skin: Skin is warm and dry and no rashes or lesions are noted. Psychiatric: Cooperative, appropriate mood & affect, normal judgment. Limitations: no limitations Course Vital Signs 05/06/20 08:27 Temperature 98.1 F Pulse Rate 78 Respiratory 18 Rate Blood Pressure 152/80 O2 Sat by Pulse 96 Oximetry Medical Decision Making - Medical Decision Making HAS BEEN REVIEWED SHOWS NO EVIDENCE OF HYDRONEPHROSIS. PATIENT'S ABLE URINATE HERE IN EMERGENCY ROOM DISCHARGED RED CELLS NO SIGN OF INFECTION. PATIENT'S LABS BEEN REVIEWED. KUB IS UNREMARKABLE. AT THIS TIME PATIENT'S PAIN CONTROL WILL BE DISCHARGED HOME TO FOLLOW WITH UROLOGY. - Lab Data Result diagrams: 05/06/20 08:59 05/06/20 08:59 Lab Results 05/06/20 05/06/20 05/06/20 Range/Units 08:59 08:59 08:59 WBC 5.4 (3.8-10.6) k/uL RBC 4.78 (4.30-5.90) m/uL Hgb 14.9 (13.0-17.5) gm/dL Hct 44.7 (39.0-53.0) % MCV 93.5 (80.0-100.0) fL MCH 31.2 (25.0-35.0) pg MCHC 33.4 (31.0-37.0) g/dL RDW 12.4 (11.5-15.5) % Plt Count 166 (150-450) k/uL MPV 8.1 Neutrophils % 66 % Lymphocytes % 25 % Monocytes % 6 % Eosinophils % 1 % Basophils % 1 % Neutrophils # 3.6 (1.3-7.7) k/uL Lymphocytes # 1.4 (1.0-4.8) k/uL Monocytes # 0.3 (0-1.0) k/uL Eosinophils # 0.1 (0-0.7) k/uL Basophils # 0.0 (0-0.2) k/uL Sodium 139 (137-145) mmol/L Potassium 4.5 (3.5-5.1) mmol/L Chloride 110 H (98-107) mmol/L Carbon Dioxide 26 (22-30) mmol/L Anion Gap 3 mmol/L BUN 22 H (9-20) mg/dL Creatinine 1.27 H (0.66-1.25) mg/dL Est GFR (CKD-EPI)AfAm 82 (>60 ml/min/1.73 sqM) Est GFR (CKD-EPI)NonAf 71 (>60 ml/min/1.73 sqM) Glucose 111 H (74-99) mg/dL Calcium 9.2 (8.4-10.2) mg/dL Urine Color Yellow Urine Appearance Clear (Clear) Urine pH 5.5 (5.0-8.0) Ur Specific [place] 1.019 (1.001-1.035) Urine Protein Negative (Negative) Urine Glucose (UA) Negative (Negative) Urine Ketones Negative (Negative) Urine Blood Small H (Negative) Urine Nitrite Negative (Negative) Urine Bilirubin Negative (Negative) Urine Urobilinogen <2.0 (<2.0) mg/dL Ur Leukocyte Esterase Negative (Negative) Urine RBC 28 H (0-5) /hpf Urine WBC 2 (0-5) /hpf Urine Bacteria Rare H (None) /hpf Urine Mucus Rare H (None) /hpf Disposition Clinical Impression: Kidney stone Disposition: HOME SELF-CARE Condition: Good Instructions (If sedation given, give patient instructions): Kidney Stones (ED) Is patient prescribed a controlled substance at d/c from ED?: No Referrals: Checo Beltran MD [Primary Care Provider] - 1-2 days Ramana Hahn MD [STAFF PHYSICIAN] - 1-2 days Time of Disposition: 10:40
[2020-05-06 10:48] VITALS: BP 140/78; PULSE 88
== END 2020-05-06 10:42 | disposition home or self-care (01) ==
LOC: EC 08:24
DX: N20.0 Calculus of kidney (principal); K21.9 Gastro-esophageal reflux disease without esophagitis; F90.9 Attention-deficit hyperactivity disorder, unspecified type; Z79.899 Other long term (current) drug therapy
CPT/HCPCS: 36415; 80048; 85025; 81001; 74018; 76770; 99285; 96374; 96361 ×2; J1885

== ENCOUNTER 2020-05-10 11:38 | Day surgery (SDC) | payer BC, OTHER ==
[2020-05-08 10:23] VITALS: BMI 36.6
[~2020-05-10 11:38] MED LIST: DEXAMETHASONE SOD PHOSPHATE 4 MG/ML 1 ML VIAL IV ONE; HYDROmorphone 0.5 MG/0.5 ML SYRINGE IVP PRN; LACTATED RINGERS 1,000 ML IV SCH; LIDOCAINE 1% (10MG/ML) FOR IV START INTRADERMA PRN; MIDAZOLAM 2 MG/2 ML VIAL IV PRN; ONDANSETRON 4 MG/2 ML VIAL IVP ONE; ceFAZolin 3 GM in SODIUM CHLORIDE 0.9% 100 ML IVPB PRN; fentaNYL (PF) 50 MCG/ML 2 ML AMP IVP PRN
--- NOTE | 2020-05-10 12:17 | XR ---
EXAMINATION TYPE: XR KUB DATE OF EXAM: 05/10/2020 COMPARISON: 05/06/2020 HISTORY: Preop TECHNIQUE: One view abdominal series FINDINGS: The osseous structures are intact. The bowel gas pattern is nonspecific. Tiny calcification in the p sergo nonspecific could represent a tiny bladder calculus or vascular. Hypertrophic and degenerative changes of the spine. Extensive retained fecal debris throughout the colon limits renal assessment wi th no definite calcifications overlying the renal outlines. IMPRESSION: 1. Nonspecific abdomen. Tiny 2 mm calcification in the lower pelvis was not seen on the prior exam. Could represent a tiny bladder calculus correlate clinically.
[2020-05-10] MEDS ORDERED: MIDAZOLAM 2 MG/2 ML VIAL ONE (12:48)
[2020-05-10] MEDS ORDERED: SUCCINYLCHOLINE CHLORIDE 100 MG/5 ML SYR IV ONE (12:48)
[2020-05-10] MEDS ORDERED: fentaNYL (PF) 50 MCG/ML 2 ML AMP ONE (12:48)
[2020-05-10] MEDS ORDERED: LIDOCAINE 1% INJ 10MG/ML (20 ML MDV) ONE (12:48)
[2020-05-10] MEDS ORDERED: PROPOFOL 10 MG/ML 20 ML VIAL IV ONE (12:48)
[2020-05-10] MEDS ORDERED: IOPAMIDOL-370 50ML BTL IRRIGATION ONE (13:30)
[2020-05-10] MEDS ORDERED: LACTATED RINGERS 1,000 ML IV ONE (13:38)
--- NOTE | 2020-05-10 13:45 | FL ---
EXAMINATION TYPE: FL urography retrograde DATE OF EXAM: 05/10/2020 COMPARISON: NONE HISTORY: Fluoroscopy TECHNIQUE: Fluoroscopy. FINDINGS: Fluoroscopic guidance was provided during procedure 15 seconds IMPRESSION: As Above.
--- NOTE | 2020-05-10 13:45 | P.OP ---
Date of Procedure: 05/10/20 Preoperative Diagnosis: Right ureteral stone Postoperative Diagnosis: Same Procedure(s) Performed: Cystoscopy, right ureteroscopy, holmium laser lithotripsy, stone basketing, retrograde pyelogram and stent placement Implants: 4.8-American by 26 cm stent left on a string on the right Anesthesia: HERRERA Surgeon: Endy Rasmussen Estimated Blood Loss (ml): 5 Pathology: other (Right ureteral stone) Condition: stable Disposition: PACU Indications for Procedure: This is a 39-year-old male with history of 5 mm right ureteral stone. Having intractable pain secondary to stone. The option of right-sided ureteroscopy with holmium laser was discussed with him. Discussed with him the risk which includes but not limited to bleeding, infection, injury to the ureter. He understood all the risk and agreed to proceed Operative Findings: Stone in the right distal ureter, ureteral edema at the UVJ and the distal ureter Description of Procedure: Patient was brought to the operating room, general anesthesia was induced. He was prepped and draped in sterile fashion a placement dorsal lithotomy position. Cystoscopy fitted with a 21-American sheath was inserted per urethra, cystoscopy was performed showed no abnormality within the bladder. Attention was then carried to the right ureteral orifice which was intubated with a sensor wire. At this time the cystoscope was withdrawn and a semirigid ureteroscope was inserted per urethra, and advanced up to the bladder. The right ureteral orifice was visualized and the ureteroscope was advanced through the right ureteral orifice, the stone was encountered in the distal ureter, of note there was ureteral edema at the UVJ and the distal ureter. Using the holmium laser the stone was fragmented into small fragments. Sizable fragments were removed and sent for analysis. At this time the ureteroscope was advanced all the way up to the proximal ureter which showed no additional stones or fragments. Retrograde pyelogram was performed through the ureteroscope which showed a no filling defect within the collecting system. Pullback ureteroscopy was performed showed no injury to the ureter or any sizable fragments. Next a ureteral stent was passed over the wire. The proximal curl was visualized on fluoroscopy and distal curl was visualized using cystoscope. The stent was left on a string. The bladder was emptied and then the case. The patient tolerated the procedure well was taken to PACU in stable condition
[2020-05-10 13:58] VITALS: TEMP 97.6
[2020-05-10 14:54] VITALS: BP 121/84; PULSE 58; RESP 16
== END 2020-05-10 15:12 | disposition home or self-care (01) ==
LOC: OR 11:38
PROVIDERS: ATTEND Urology
DX: N20.1 Calculus of ureter (principal); F98.8 Other specified behavioral and emotional disorders with onset usually occurring in childhood and adolescence; K21.9 Gastro-esophageal reflux disease without esophagitis; Z79.899 Other long term (current) drug therapy; Z79.891 Long term (current) use of opiate analgesic; Z98.890 Other specified postprocedural states
CPT/HCPCS: 82365; 74420; 74018; 52356; C2625; C1758; C1769; J2250; J1100; J0690; J2405; J2001; J3010; J0330; J2704; Q9967

== ENCOUNTER 2020-07-14 08:05 | Emergency (ER) | payer BC, OTHER ==
[2020-07-14 08:22] VITALS: BP 128/88; PULSE 82; RESP 18; TEMP 98.3
--- NOTE | 2020-07-14 08:53 | ED ---
General Adult HPI - General Chief complaint: Upper Respiratory Infection Stated complaint: SINUS ISSUES Time Seen by Provider: 07/14/20 08:24 Source: patient, RN notes reviewed Mode of arrival: ambulatory Limitations: no limitations - History of Present Illness Initial comments: Patient is a pleasant 4-year-old male presenting to the emergency department sore throat and sinus congestion. Onset of symptoms was 3 days ago. Patient states he does get symptoms like this fairly routinely, usually at least once a year. Patient does have history of frequent strep infections. Patient does have sore throat. Discomfort increases with swallowing. No dyspnea. Patient is tolerating oral intake. Patient also has sinus congestion and drainage. Patient is unclear what color. Patient states he may have had a mild fever last night. No loss of taste or loss of smell. Minimal nonproductive cough. No dyspnea. - Related Data Home Medications Medication Instructions Recorded Confirmed Dextroamphetamine/Amphetamine 30 mg PO DAILY@1400 12/06/18 05/10/20 [Dextroamp-Amphetamin 30 mg Tab] Lisdexamfetamine Dimesylate 70 mg PO DAILY 12/06/18 05/10/20 [Vyvanse] Omeprazole 40 mg PO QAM 12/06/18 05/10/20 Tamsulosin [Flomax] 0.4 mg PO QAM 05/08/20 05/10/20 Previous Rx's Medication Instructions Recorded Naproxen [Naprosyn] 500 mg PO BID #20 tablet 04/29/20 methocarbamoL [Robaxin] 1,000 mg PO TID PRN 5 Days #30 tab 04/29/20 HYDROcodone/APAP 7.5-325MG [Pitcher 1 tab PO Q6HR PRN 3 Days #12 tab 05/03/20 7.5-325] Ketorolac [Toradol] 10 mg PO Q8HR #15 tab 05/03/20 Cephalexin [Keflex] 500 mg PO Q8HR #15 cap 05/10/20 Ibuprofen 600 mg PO Q8H PRN #30 tab 05/10/20 Allergies Allergy/AdvReac Type Severity Reaction Status Date / Time No Known Allergies Allergy Verified 07/14/20 08:17 Review of Systems ROS Statement: Those systems with pertinent positive or pertinent negative responses have been documented in the HPI. ROS Other: All systems not noted in ROS Statement are negative. Constitutional: Reports: as per HPI, fever, chills Eyes: Denies: eye pain ENT: Reports: congestion Respiratory: Reports: as per HPI, cough. Denies: dyspnea Cardiovascular: Denies: chest pain Endocrine: Denies: fatigue Gastrointestinal: Denies: abdominal pain Genitourinary: Denies: dysuria Musculoskeletal: Denies: back pain Skin: Denies: rash Neurological: Denies: weakness Past Medical History Past Medical History: GERD/Reflux Additional Past Medical History / Comment(s): kidney stone History of Any Multi-Drug Resistant Organisms: None Reported Past Surgical History: Orthopedic Surgery Additional Past Surgical History / Comment(s): ORIF left shoulder surgery/ nose surgery/ left knee surgery, lt ankle, nose x 5 Past Anesthesia/Blood Transfusion Reactions: No Reported Reaction Additional Past Anesthesia/Blood Transfusion Reaction / Comment(s): no hx blood transfusion Past Psychological History: ADD/ADHD Smoking Status: Never smoker Past Alcohol Use History: Daily Past Drug Use History: None Reported - Past Family History Mother Family Medical History: No Reported History General Exam Limitations: no limitations General appearance: alert, in no apparent distress Head exam: Present: normocephalic Eye exam: Present: normal appearance ENT exam: Present: other (Patient does have tenderness over the frontal maxillary and ethmoid sinuses. Mild pharyngeal erythema) Neck exam: Present: normal inspection. Absent: lymphadenopathy Respiratory exam: Present: normal lung sounds bilaterally Cardiovascular Exam: Present: regular rate, normal rhythm GI/Abdominal exam: Present: soft. Absent: tenderness Extremities exam: Present: normal inspection Neurological exam: Present: alert Psychiatric exam: Present: normal affect, normal mood Skin exam: Present: normal color Course Vital Signs 07/14/20 08:17 Temperature 98.3 F Pulse Rate 82 Respiratory 18 Rate Blood Pressure 128/88 O2 Sat by Pulse 96 Oximetry Medical Decision Making - Medical Decision Making Patient reevaluated and updated - Lab Data Lab Results 07/14/20 07/14/20 Range/Units 08:28 08:28 Coronavirus (PCR) Detected A (Not Detectd) Group A Strep Rapid Negative (Negative) Disposition Clinical Impression: Coronavirus infection Disposition: HOME SELF-CARE Condition: Stable Instructions (If sedation given, give patient instructions): Upper Respiratory Infection (ED) Additional Instructions: Quarantine For a total of 10 days following the onset of symptoms and 24 hours fever free. [id number] Tylenol as needed for fever or chills or muscle aches. Daily [id number] vitamin D, vitamin C, and zinc. Return for not tolerating fluids, difficulty breathing, uncontrolled fevers, worsening symptoms or other concerns. Is patient prescribed a controlled substance at d/c from ED?: No Referrals: Checo Beltran MD [Primary Care Provider] - 1-2 days Time of Disposition: 09:22
== END 2020-07-14 09:20 | disposition home or self-care (01) ==
LOC: EC 08:05
DX: B34.2 Coronavirus infection, unspecified (principal); K21.9 Gastro-esophageal reflux disease without esophagitis; Z87.442 Personal history of urinary calculi
CPT/HCPCS: 87081; 87430; 87635; 99283

== ENCOUNTER → 2020-12-07 | Outpatient (CLI) | payer BC, OTHER ==
--- NOTE | 2020-12-07 11:18 | XR ---
EXAMINATION TYPE: XR KUB DATE OF EXAM: 12/07/2020 11:11 AM CLINICAL HISTORY: Ureteral calculus. TECHNIQUE: Single supine KUB image of the abdomen is obtained. COMPARISON: None. FINDINGS: Scattered gas is seen in non-distended small bowel loops. Gas and fecal material is seen in non-distended colon. There is no visceromegaly, pneumoperitoneum, or abnormal calcification apprecia inocencia. The lung bases are clear and the osseous structures are intact. IMPRESSION: Overall nonobstructive bowel gas pattern. No suspicious calcification.
== END | disposition home or self-care (01) ==
LOC: RADXRMAIN 10:56
PROVIDERS: ATTEND Urology
DX: N20.1 Calculus of ureter (principal)
CPT/HCPCS: 74018

== ENCOUNTER 2020-12-24 08:29 | Emergency (ER) | payer BC, OTHER ==
[2020-12-24 08:35] VITALS: BP 130/91; PULSE 82; RESP 18; TEMP 97.8
[2020-12-24] MEDS ORDERED: AMOXIC-POT CLAV 500-125 MG 1 EACH TAB PO STA (08:45)
[2020-12-24] MEDS ORDERED: predniSONE 50 MG TAB PO STA (08:45)
--- NOTE | 2020-12-24 08:51 | ED ---
URI HPI - General Chief Complaint: Upper Respiratory Infection Stated Complaint: Cough Time Seen by Provider: 12/24/20 08:38 Source: patient, RN notes reviewed Mode of arrival: ambulatory Limitations: no limitations - History of Present Illness Initial Comments: 40-year-old male who states she's had 2 weeks cough with phlegm production some rhinorrhea states he was given a steroid shot by his doctor almost (10 days) 2 weeks ago without any improvement. He denies any fevers chills nausea vomiting sweats just a persistent cough productiveparticular color of phlegm however. No chest pain no other symptoms. MD Complaint: rhinorrhea, nasal congestion - Related Data Home Medications Medication Instructions Recorded Confirmed Dextroamphetamine/Amphetamine 30 mg PO DAILY@1400 12/06/18 07/14/20 [Dextroamp-Amphetamin 30 mg Tab] Lisdexamfetamine Dimesylate 70 mg PO DAILY 12/06/18 07/14/20 [Vyvanse] Ibuprofen [Motrin Ib] 600 mg PO Q8H PRN 07/14/20 07/14/20 Multivitamins, Thera [Multivitamin 1 tab PO DAILY 07/14/20 07/14/20 (formulary)] Omeprazole 20 mg PO DAILY 07/14/20 07/14/20 Previous Rx's Medication Instructions Recorded Albuterol Inhaler [Ventolin Hfa 2 puff INHALATION RT-QID #8 gm 12/24/20 Inhaler] Amoxicillin/Potassium Clav 1 tab PO BID 1 Days #20 tab 12/24/20 [Augmentin 875-125 Tablet] predniSONE [Deltasone] 20 mg PO BID #10 tab 12/24/20 Allergies Allergy/AdvReac Type Severity Reaction Status Date / Time No Known Allergies Allergy Verified 12/24/20 08:35 Review of Systems ROS Statement: Those systems with pertinent positive or pertinent negative responses have been documented in the HPI. ROS Other: All systems not noted in ROS Statement are negative. Past Medical History Past Medical History: GERD/Reflux Additional Past Medical History / Comment(s): kidney stone History of Any Multi-Drug Resistant Organisms: None Reported Past Surgical History: Orthopedic Surgery Additional Past Surgical History / Comment(s): ORIF left shoulder surgery/ nose surgery/ left knee surgery, lt ankle, nose x 5 Past Anesthesia/Blood Transfusion Reactions: No Reported Reaction Additional Past Anesthesia/Blood Transfusion Reaction / Comment(s): no hx blood transfusion Past Psychological History: ADD/ADHD Smoking Status: Never smoker Past Alcohol Use History: Daily Past Drug Use History: None Reported - Past Family History Mother Family Medical History: No Reported History General Exam - General Exam Comments Initial Comments: Well-developed well-nourished awake alert oriented times 3 male Limitations: no limitations General appearance: alert, in no apparent distress Head exam: Present: atraumatic, normocephalic, normal inspection Eye exam: Present: normal appearance, PERRL, EOMI. Absent: scleral icterus, conjunctival injection, periorbital swelling ENT exam: Present: other (Mild pharyngeal hyperemia TMs are intact within normal limits boggy nasal mucosa) Neck exam: Present: normal inspection, full ROM. Absent: tenderness, meningis mus, lymphadenopathy Respiratory exam: Present: other (Very slight reduction in airway sounds no overt wheezing rales or rhonchi). Absent: respiratory distress, wheezes, rales, rhonchi, stridor Cardiovascular Exam: Present: regular rate, normal rhythm, normal heart sounds. Absent: systolic murmur, diastolic murmur, rubs, gallop, clicks Extremities exam: Present: normal inspection, full ROM, normal capillary refill. Absent: tenderness, pedal edema, joint swelling, calf tenderness Back exam: Present: full ROM Neurological exam: Present: alert, oriented X3, CN II-XII intact Psychiatric exam: Present: normal affect, normal mood Skin exam: Present: warm, dry, intact, normal color. Absent: rash Course Vital Signs 12/24/20 08:30 Temperature 97.8 F Pulse Rate 82 Respiratory 18 Rate Blood Pressure 130/91 O2 Sat by Pulse 95 Oximetry Medical Decision Making - Medical Decision Making At this time no further workup is indicated patient requests an antibiotic which was not called by his physician he states. In addition I will place him on a short course of oral steroids and an inhaler of albuterol. Patient is a former smoker he also does work around [employer]. He is in agreement with this. No known covid exposure. Patient does state that he was tested and was negative. Disposition Clinical Impression: Rhinitis, Acute upper respiratory infection, Bronchitis Disposition: HOME SELF-CARE Condition: Good Instructions (If sedation given, give patient instructions): Upper Respiratory Infection (ED), Acute Bronchitis (ED) Prescriptions: Amoxicillin/Potassium Clav [Augmentin 875-125 Tablet] 1 tab PO BID 1 Days #20 tab predniSONE [Deltasone] 20 mg PO BID #10 tab Albuterol Inhaler [Ventolin Hfa Inhaler] 2 puff INHALATION RT-QID #8 gm Is patient prescribed a controlled substance at d/c from ED?: No Referrals: Checo Beltran MD [Primary Care Provider] - 1-2 days
== END 2020-12-24 09:10 | disposition home or self-care (01) ==
LOC: EC 08:29
DX: J31.0 Chronic rhinitis (principal); J06.9 Acute upper respiratory infection, unspecified; J40 Bronchitis, not specified as acute or chronic; K21.9 Gastro-esophageal reflux disease without esophagitis; Z79.899 Other long term (current) drug therapy; Z87.891 Personal history of nicotine dependence
CPT/HCPCS: 99283

== ENCOUNTER 2021-05-23 07:56 | Emergency (ER) | payer BC, OTHER ==
[2021-05-23 08:00] VITALS: RESP 18
[2021-05-23] MEDS: SODIUM CHLORIDE 0.9% 1,000 ML IV STA (08:44)
[2021-05-23] MEDS: KETOROLAC 15 MG/ML 1 ML VIAL IVP STA (08:44)
--- NOTE | 2021-05-23 08:44 | ED ---
Abdominal Pain HPI - General Chief Complaint: Abdominal Pain Stated Complaint: kidney stones Time Seen by Provider: 05/23/21 08:01 Source: patient Mode of arrival: ambulatory Limitations: no limitations - History of Present Illness Initial Comments: Patient is a 40-year-old male with a past medical history of nephrolithiasis who presents with right flank pain since last night. Patient reports 10/10 right flank pain with radiation to the right lower back and right lower quadrant of the abdomen, typical of his previous kidney stones. Patient reports associated hematuria. He denies fever, chills, shortness of breath, chest pain, nausea, vomiting dizziness, dysuria, and urinary retention. - Related Data Home Medications Medication Instructions Recorded Confirmed Dextroamphetamine/Amphetamine 30 mg PO DAILY 12/06/18 05/23/21 [Dextroamp-Amphetamin 30 mg Tab] Lisdexamfetamine Dimesylate 70 mg PO DAILY 12/06/18 05/23/21 [Vyvanse] Omeprazole 40 mg PO DAILY 05/23/21 05/23/21 Allergies Allergy/AdvReac Type Severity Reaction Status Date / Time No Known Allergies Allergy Verified 05/23/21 09:02 Review of Systems ROS Statement: Those systems with pertinent positive or pertinent negative responses have been documented in the HPI. ROS Other: All systems not noted in ROS Statement are negative. Past Medical History Past Medical History: GERD/Reflux Additional Past Medical History / Comment(s): kidney stone, majory family histo ry of colon cancer History of Any Multi-Drug Resistant Organisms: None Reported Past Surgical History: Orthopedic Surgery Additional Past Surgical History / Comment(s): ORIF left shoulder surgery/ nose surgery/ left knee surgery, lt ankle, nose x 5 Past Anesthesia/Blood Transfusion Reactions: No Reported Reaction Additional Past Anesthesia/Blood Transfusion Reaction / Comment(s): no hx blood transfusion Past Psychological History: ADD/ADHD Smoking Status: Never smoker Past Alcohol Use History: Daily Past Drug Use History: None Reported - Past Family History Mother Family Medical History: No Reported History General Exam Limitations: no limitations General appearance: alert, in no apparent distress Head exam: Present: atraumatic, normocephalic, normal inspection Eye exam: Present: normal appearance, PERRL, EOMI. Absent: scleral icterus, conjunctival injection, periorbital swelling Neck exam: Present: normal inspection. Absent: tenderness, meningismus, lymphadenopathy Respiratory exam: Present: normal lung sounds bilaterally. Absent: respiratory distress, wheezes, rales, rhonchi, stridor Cardiovascular Exam: Present: regular rate, normal rhythm, normal heart sounds. Absent: systolic murmur, diastolic murmur, rubs, gallop, clicks GI/Abdominal exam: Present: soft, tenderness (RLQ, RUQ). Absent: distended, guarding, rebound, rigid Back exam: Present: normal inspection, full ROM, CVA tenderness (R), paraspinal tenderness (right lumbar region ). Absent: tenderness (right lumbar region ), CVA tenderness (L), muscle spasm, vertebral tenderness, rash noted Neurological exam: Present: alert, oriented X3, CN II-XII intact Psychiatric exam: Present: normal affect, normal mood Skin exam: Present: warm, dry, intact, normal color. Absent: rash Course Vital Signs 05/23/21 05/23/21 07:57 08:41 Temperature 97.8 F Pulse Rate 68 71 Respiratory 18 18 Rate Blood Pressure 165/98 137/84 O2 Sat by Pulse 99 96 Oximetry Medical Decision Making - Medical Decision Making Is a 40-year-old male with a history of nephrolithiasis who presents to the emergency department with a chief complaint of right flank pain. Patient is afebrile with no leukocytosis. Urinalysis is clear. CT abdomen/pelvis reveals a punctate 2 mm nonobstructive left renal calculus with no hydronephrosis or ureteral calculus. There is prominent mid and right-sided mesenteric lymph nodes measuring up to 7 mm with mild mesenteric fat stranding. Reevaluation patient is sleeping comfortably in bed. Results discussed with patient. Return parameters discussed. - Lab Data Result diagrams: 05/23/21 08:41 05/23/21 08:41 Lab Results 05/23/21 05/23/21 05/23/21 Range/Units 08:41 08:41 09:23 WBC 5.6 (3.8-10.6) k/uL RBC 4.77 (4.30-5.90) m/uL Hgb 15.5 (13.0-17.5) gm/dL Hct 46.4 (39.0-53.0) % MCV 97.3 (80.0-100.0) fL MCH 32.5 (25.0-35.0) pg MCHC 33.4 (31.0-37.0) g/dL RDW 11.6 (11.5-15.5) % Plt Count 179 (150-450) k/uL MPV 8.1 Neutrophils % 61 % Lymphocytes % 29 % Monocytes % 6 % Eosinophils % 2 % Basophils % 1 % Neutrophils # 3.4 (1.3-7.7) k/uL Lymphocytes # 1.6 (1.0-4.8) k/uL Monocytes # 0.3 (0-1.0) k/uL Eosinophils # 0.1 (0-0.7) k/uL Basophils # 0.1 (0-0.2) k/uL Sodium 139 (137-145) mmol/L Potassium 4.4 (3.5-5.1) mmol/L Chloride 109 H (98-107) mmol/L Carbon Dioxide 24 (22-30) mmol/L Anion Gap 6 mmol/L BUN 18 (9-20) mg/dL Creatinine 1.26 H (0.66-1.25) mg/dL Est GFR (CKD-EPI)AfAm 82 (>60 ml/min/1.73 sqM) Est GFR (CKD-EPI)NonAf 71 (>60 ml/min/1.73 sqM) Glucose 93 (74-99) mg/dL Calcium 8.7 (8.4-10.2) mg/dL Total Bilirubin 0.6 (0.2-1.3) mg/dL AST 23 (17-59) U/L ALT 29 (4-49) U/L Alkaline Phosphatase 92 (38-126) U/L Total Protein 6.7 (6.3-8.2) g/dL Albumin 3.9 (3.5-5.0) g/dL Lipase 141 (23-300) U/L Urine Color Yellow Urine Appearance Clear (Clear) Urine pH 6.0 (5.0-8.0) Ur Specific [place] 1.021 (1.001-1.035) Urine Protein Negative (Negative) Urine Glucose (UA) Negative (Negative) Urine Ketones Negative (Negative) Urine Blood Negative (Negative) Urine Nitrite Negative (Negative) Urine Bilirubin Negative (Negative) Urine Urobilinogen <2.0 (<2.0) mg/dL Ur Leukocyte Esterase Negative (Negative) Disposition Clinical Impression: Right flank pain, Adenitis Disposition: HOME SELF-CARE Condition: Good Additional Instructions: Follow-up with primary care provider 1 to 2 days. Return to the emergency department if you experience new, concerning, or worsening symptoms. Is patient prescribed a controlled substance at d/c from ED?: No Referrals: Checo Beltran MD [Primary Care Provider] - 1-2 days Time of Disposition: 10:07
[2021-05-23 09:05] LABS: Basophils # (A) 0.1 k/uL (0-0.2); Basophils % (A) 1 %; Eosinophils # (A) 0.1 k/uL (0-0.7); Eosinophils % (A) 2 %; HCT 46.4 % (39.0-53.0); HGB 15.5 gm/dL (13.0-17.5); Lymphocytes # (A) 1.6 k/uL (1.0-4.8); Lymphocytes % (A) 29 %; MCH 32.5 pg (25.0-35.0); MCHC 33.4 g/dL (31.0-37.0); MCV 97.3 fL (80.0-100.0); Mean Platelet Volume 8.1; Monocytes # (A) 0.3 k/uL (0-1.0); Monocytes % (A) 6 %; Neutrophils # (A) 3.4 k/uL (1.3-7.7); Neutrophils % (A) 61 %; Platelet Count 179 k/uL (150-450); RBC 4.77 m/uL (4.30-5.90); RDW 11.6 % (11.5-15.5); WBC 5.6 k/uL (3.8-10.6)
[2021-05-23 09:16] LABS: Albumin 3.9 g/dL (3.5-5.0); Calcium 8.7 mg/dL (8.4-10.2); Potassium 4.4 mmol/L (3.5-5.1); Total Bilirubin 0.6 mg/dL (0.2-1.3); Total Protein 6.7 g/dL (6.3-8.2)
[2021-05-23 09:27] LABS: Appearance,Urine Clear (Clear); Bilirubin,Urine Negative (Negative); Blood,Urine Negative (Negative); Color,Urine Yellow; Glucose,Urine (UA) Negative (Negative); Ketones,Urine Negative (Negative); Leukocyte Esterase,Urine Negative (Negative); Nitrite,Urine Negative (Negative); Protein,Urine Negative (Negative); Specific Gravity,Urine 1.021 (1.001-1.035); Urobilinogen,Urine <2.0 mg/dL (<2.0)
--- NOTE | 2021-05-23 09:54 | CT ---
EXAMINATION TYPE: CT abdomen pelvis wo con DATE OF EXAM: 05/23/2021 COMPARISON: 05/03/2020 HISTORY: 40 year-old male right flank pain CT DLP: 1625 mGycm. Automated exposure control for dose reduction was used. TECHNIQUE: Contiguous axial scanning of the abdomen and pelvis without IV contrast. Coronal and sagit cole reconstructions performed. FINDINGS: Heart normal size without pericardial effusion. Lung bases clear without pleural effusion. Noncontrast appearance of the liver, adrenal glands, spleen, and pancreas show no gross abnormality. Tiny 4 mm gallstone. No abnormal gallbladder distention. Punctate nonobstructive 2 mm left renal calculus. No hydronephrosis on either side. No ureteral calcu fidelia identified. No dilated small bowel, free fluid, or free air. Tiny fatty helical hernia. A number of prominent right and mid mesenteric lymph nodes are present measuring up to 7 mm with mild mesenteric fat stranding, for example, axial image 83, 85, and 94. Appendix is normal. Mild stool burden. No pericolic inflammatory change. Bladder underdistended. Prostate gland measures 4.0 cm wide. No abnormal fluid collection in the pelv is or pelvic lymphadenopathy seen. Bones: Facet arthropathy lower lumbar spine. Mild degenerative disc disease L5-S1. IMPRESSION: 1. Punctate 2 mm nonobstructive left renal calculus. No hydronephrosis or ureteral calculus identifi ed. 2. A number prominent mid and right-sided mesenteric lymph nodes measuring up to 7 mm with mild mese nteric fat stranding. Correlate for mesenteric adenitis or mesenteric panniculitis. 3 month follow-up CT to ensure stability/resolution. 3. 4 mm gallstone.
[2021-05-23 10:15] VITALS: BP 134/75; PULSE 63; TEMP 97.6
== END 2021-05-23 10:38 | disposition home or self-care (01) ==
LOC: EC 07:56
DX: N20.0 Calculus of kidney (principal); I88.9 Nonspecific lymphadenitis, unspecified; K21.9 Gastro-esophageal reflux disease without esophagitis; Z79.899 Other long term (current) drug therapy
CPT/HCPCS: 36415; 80053; 83690; 85025; 81003; 74176; 99284; 96374; 96361; J1885

== ENCOUNTER 2021-08-15 06:28 | Day surgery (SDC) | payer BC, OTHER ==
[2021-08-13 10:44] VITALS: BMI 35.2
[~2021-08-15 06:28] MED LIST changes: -DEXAMETHASONE SOD PHOSPHATE 4 MG/ML 1 ML VIAL IV ONE; -HYDROmorphone 0.5 MG/0.5 ML SYRINGE IVP PRN; -LIDOCAINE 1% (10MG/ML) FOR IV START INTRADERMA PRN; -MIDAZOLAM 2 MG/2 ML VIAL IV PRN; -ONDANSETRON 4 MG/2 ML VIAL IVP ONE; -ceFAZolin 3 GM in SODIUM CHLORIDE 0.9% 100 ML IVPB PRN; -fentaNYL (PF) 50 MCG/ML 2 ML AMP IVP PRN
[2021-08-15] MEDS ORDERED: LACTATED RINGERS 1,000 ML IV ONE (06:51)
[2021-08-15 06:53] VITALS: TEMP 97.8
[2021-08-15] MEDS ORDERED: PROPOFOL 10 MG/ML 20 ML VIAL IV ONE (07:23)
[2021-08-15] MEDS ORDERED: MIDAZOLAM 2 MG/2 ML VIAL ONE (07:23)
[2021-08-15] MEDS ORDERED: LIDOCAINE 2% INJ 20 MG/ML (2 ML VIAL) ONE (07:23)
[2021-08-15] MEDS ORDERED: fentaNYL (PF) 50 MCG/ML 2 ML AMP ONE (07:23)
--- NOTE | 2021-08-15 07:51 | P.PCN ---
Date of Procedure: 08/15/21 Procedure(s) Performed: Brief history: Patient is a pleasant 41-year-old white female scheduled for an elective upper endoscopy as well as colonoscopy as a part of evaluation of long-standing history of GERD and intermittent rectal bleeding Procedure performed: Esophagogastroduodenoscopy with biopsy Colonoscopy with biopsy Preoperative diagnosis: Long-standing history of GERD Intermittent rectal bleeding Anesthesia: MAC Procedure: After informed consent was obtained from the patient was brought into the endoscopy unit and IV sedation was administered by anesthesia under continuous monitoring. Initially upper endoscopy was done. The Olympus GF 160 video endoscope was inserted inserted into the mouth and esophagus intubated without any difficulty and was gradually advanced into the stomach and duodenum and carefully examined. The bulb and second part of the duodenum appeared normal. The scope was then withdrawn into the stomach adequately insufflated with air and upon careful examination the antrum mild gastritis and biopsies were done from this area. The body, cardia and fundus appeared normal. The scope was then withdrawn into the esophagus. The GE junction was located at 40 cm to the incisors. It appeared regular with no erythema erosions or ulcerations. Rest of the esophagus appeared normal. Patient tolerated the procedure well. At this time the patient continued to remain sedation. Initial digital rectal examination was normal. Olympus CF 160 video colonoscope was then inserted into the rectum and gradually advanced to the cecum without any difficulty. Careful examination was performed as the scope was gradually being withdrawn. The prep was excellent. The cecum, ascending colon, transverse colon, descending colon, sigmoid colon normal. In the sigmoid: There was a 3 mm polyp that was removed by cold biopsy. Rest of the sigmoid colon and rectum appeared normal. Retroflexion was performed in the rectum and grade 2 internal hemorrhoidsd. Patient tolerated the procedure well. Impression: 1. Upper endoscopy revealed mild antral gastritis but no evidence of esophagitis or Nichols's esophagus 2. Colonoscopy revealed 3 mm sigmoid polyp and small internal hemorrhoids Recommendations: Findings of this examination were discussed with the patient as well ashis family. He was advised to follow with the biopsy result. If the biopsy reveals adenoma he can have a repeat colonoscopy in 5 years. In the meantime he was advised to be a high-fiber diet and take Esophagus appeared regular basis and avoid straining and constipation.
[2021-08-15 07:53] VITALS: RESP 16
[2021-08-15 08:07] VITALS: BP 130/88; PULSE 60
== END 2021-08-15 08:20 | disposition home or self-care (01) ==
LOC: ORWHC2ENDO 06:28
PROVIDERS: ATTEND Internal Medicine Gastroenterology
DX: K21.9 Gastro-esophageal reflux disease without esophagitis (principal); K62.5 Hemorrhage of anus and rectum; K29.50 Unspecified chronic gastritis without bleeding; K21.00 Gastro-esophageal reflux disease with esophagitis, without bleeding; K63.5 Polyp of colon; K64.1 Second degree hemorrhoids; Z79.899 Other long term (current) drug therapy; Z98.890 Other specified postprocedural states
CPT/HCPCS: 88305; 45380; 43239; J2250; J3010; J2704; J2001

== ENCOUNTER 2024-02-27 22:42 | Emergency (ER) | payer OTHER, BC ==
[2024-02-27 22:58] VITALS: TEMP 97.4
[2024-02-27 23:39] LABS: Basophils % (A) 1 %; Eosinophils # (A) 0.1 k/uL (0-0.7); Eosinophils % (A) 2 %; HGB 15.3 gm/dL (13.0-17.5); Lymphocytes % (A) 34 %; MCH 32.7 pg (25.0-35.0); MCHC 33.9 g/dL (31.0-37.0); MCV 96.5 fL (80.0-100.0); Mean Platelet Volume 8.1; Monocytes # (A) 0.3 k/uL (0-1.0); Monocytes % (A) 5 %; Neutrophils # (A) 3.5 k/uL (1.3-7.7); Neutrophils % (A) 59 %; Platelet Count 200 k/uL (150-450); RBC 4.67 m/uL (4.30-5.90); RDW 11.8 % (11.5-15.5)
--- NOTE | 2024-02-27 23:41 | ED ---
Abdominal Pain HPI - General Chief Complaint: Abdominal Pain Stated Complaint: abd pain Source: patient Mode of arrival: EMS Limitations: no limitations - History of Present Illness Initial Comments: Patient is a 43-year-old man who presents to have evaluation for left flank pain . The pain came on proximately 3 hours ago while at rest. He denies any inciting injury or trauma. No lifting. Patient states that it does remind him of previous episode of kidney stone. Patient states he is also having urge to urinate but has not been able to pass any urine. No testicular mass or pain. The pain does radiate down to the left lower quadrant. No fever or chills. No nausea or vomiting. No change in bowel movements MD Complaint: flank pain Onset/Timin -: hour(s) Location: L flank Radiation: LLQ Migration to: no migration Severity: severe Quality: aching, sharp Consistency: colicky Improves With: nothing Worsens With: nothing Associated Symptoms: other - Related Data Home Medications Medication Instructions Recorded Confirmed Lisdexamfetamine Dimesylate 70 mg PO DAILY 12/06/18 06/29/22 [Vyvanse] Omeprazole 40 mg PO DAILY 05/23/21 06/29/22 Dextroamphetamine/Amphetamine 30 mg PO DAILY 06/29/22 06/29/22 [Adderall] Previous Rx's Medication Instructions Recorded Ibuprofen [Motrin] 600 mg PO Q8HR PRN #30 tab 06/29/22 HYDROcodone/APAP 5-325MG [[place] 1 tab PO Q6HR PRN 3 Days #12 tab 02/28/24 5-325] Ondansetron Odt [Zofran ODT] 4 mg PO Q8HR PRN #10 tab 02/28/24 Tamsulosin [Flomax] 0.4 mg PO DAILY #14 cap 02/28/24 HYDROcodone/APAP 10-325MG [[place] 1 tab PO Q6HR PRN 3 Days #12 tab 02/29/24 10-325] Ketorolac [Toradol] 10 mg PO Q8HR #15 tab 02/29/24 Allergies Allergy/AdvReac Type Severity Reaction Status Date / Time No Known Allergies Allergy Verified 02/28/24 22:03 Review of Systems ROS Statement: Those systems with pertinent positive or pertinent negative responses have been documented in the HPI. ROS Other: All systems not noted in ROS Statement are negative. Constitutional: Denies: fever, chills, weakness Respiratory: Denies: cough, dyspnea Cardiovascular: Denies: chest pain, palpitations, edema Gastrointestinal: Reports: abdominal pain. Denies: nausea, vomiting, diarrhea, constipation, melena, hematochezia Genitourinary: Reports: urgency. Denies: frequency, hematuria, testicular pain, testicular mass Musculoskeletal: Denies: back pain Skin: Denies: rash Neurological: Denies: headache, weakness Past Medical History Past Medical History: GERD/Reflux Additional Past Medical History / Comment(s): kidney stone, major family history of colon cancer History of Any Multi-Drug Resistant Organisms: None Reported Past Surgical History: Orthopedic Surgery Additional Past Surgical History / Comment(s): ORIF left shoulder surgery x3/ nose surgery/ left knee surgery, lt ankle, nose x 5 Past Anesthesia/Blood Transfusion Reactions: No Reported Reaction Additional Past Anesthesia/Blood Transfusion Reaction / Comment(s): no hx blood transfusion Past Psychological History: ADD/ADHD Smoking Status: Never smoker Past Alcohol Use History: Occasional Past Drug Use History: None Reported - Past Family History Mother Family Medical History: No Reported History General Exam Limitations: no limitations General appearance: alert, in no apparent distress Head exam: Present: atraumatic, normocephalic Eye exam: Present: normal appearance. Absent: scleral icterus, conjunctival injection Neck exam: Present: normal inspection Respiratory exam: Present: normal lung sounds bilaterally. Absent: respiratory distress, wheezes, rales, rhonchi, stridor, accessory muscle use Cardiovascular Exam: Present: regular rate, normal rhythm, normal heart sounds. Absent: systolic murmur, diastolic murmur, rubs, gallop GI/Abdominal exam: Present: soft. Absent: distended, tenderness, guarding, rebound, rigid, organomegaly, mass, pulsatile mass, hernia Extremities exam: Present: normal inspection, normal capillary refill. Absent: pedal edema, calf tenderness Back exam: Present: normal inspection, CVA tenderness (L). Absent: tenderness, CVA tenderness (R), vertebral tenderness Neurological exam: Present: alert Skin exam: Present: warm, dry, intact, normal color. Absent: rash Course Vital Signs 02/27/24 02/28/24 22:55 01:21 Temperature 97.4 F L Pulse Rate 53 L 60 Respiratory 26 H 16 Rate Blood Pressure 131/88 130/85 O2 Sat by Pulse 97 99 Oximetry Medical Decision Making - Medical Decision Making The patient had KUB x-ray that I interpreted as negative for free air or obstruction. No definite stone is visualized. The patient had CT scan of the abdomen and pelvis that I interpreted as showing left-sided kidney stone with mild hydronephrosis Was pt. sent in by a medical professional or institution (, EFFIE, SENIOR PAYROLL SPECIALIST, urgent care, hospital, or penitentiary...) When possible be specific @ -[No] Did you speak to anyone other than the patient for history (EMS, parent, family, police, friend...)? What history was obtained from this source @ -[No] Did you review nursing and triage notes (agree or disagree)? Why? @ -[I reviewed and agree with nursing and triage notes] Were old charts reviewed (outside hosp., previous admission, EMS record, old EKG, old radiological studies, urgent care reports/EKG's, penitentiary records)? Report findings @ -[No old charts were reviewed] Differential Diagnosis (chest pain, altered mental status, abdominal pain women, abdominal pain men, vaginal bleeding, weakness, fever, dyspnea, syncope, headache, dizziness, GI bleed, back pain, seizure, CVA, palpatations, mental health, musculoskeletal)? @ -[Differential Abdominal Pain Men: Appendicitis, cholecystitis, diverticulosis, ischemic bowel, pancreatitis, hepatitis, UTI, gastroenteritis, AAA, incarcerated hernia, bowel obstruction, constipation, inflammatory bowel, hepatitis, peptic ulcer disease, splenic infarction, perforated viscus, testicular torsion, this is not meant to be an all-inclusive list EKG interpreted by me (3pts min.). @ -[As above] X-rays interpreted by me (1pt min.). @ -[I interpreted as above CT interpreted by me (1pt min.). @ -[I interpreted as above U/S interpreted by me (1pt. min.). @ -[None done] What testing was considered but not performed or refused? (CT, X-rays, U/S, labs)? Why? @ -[None] What meds were considered but not given or refused? Why? @ -[None] Did you discuss the management of the patient with other professionals (professionals i.e. Dr., PA, SENIOR PAYROLL SPECIALIST, lab, RT, psych nurse, drug abuse social worker, money laundering investigator, teacher, project officer, sample case porter)? Give summary @ -[No] Was smoking cessation discussed for >3mins.? @ -[No] Was critical care preformed (if so, how long)? @ -[No] Were there social determinants of health that impacted care today? How? (Homelessness, low income, unemployed, alcoholism, drug addiction, trans portation, low edu. Level, literacy, decrease access to med. care, [facility], rehab)? @ -[No] Was there de-escalation of care discussed even if they declined (Discuss DNR or withdrawal of care, Hospice)? DNR status @ -[No] What co-morbidities impacted this encounter? (DM, HTN, Smoking, COPD, CAD, Cance r, CVA, ARF, Chemo, Hep., AIDS, mental health diagnosis, sleep apnea, morbid obesity)? @ -[None] Was patient admitted / discharged? Hospital course, mention meds given and route, prescriptions, significant lab abnormalities, going to OR and other pertinent info. @ -[Patient is 43-year-old man presenting with symptoms and exam suggestive of kidney stone. The CT scan does confirm diagnosis. The patient is feeling better after course in the department and would like to go home. Discussed appropriate further care and follow-up as well as return parameters Undiagnosed new problem with uncertain prognosis? @ -[No] Drug Therapy requiring intensive monitoring for toxicity (Heparin, Nitro, Insu bry, Cardizem)? @ -[No] Were any procedures done? @ -[No] Diagnosis/symptom? @ -[Acute kidney stone, left-sided Acute, or Chronic, or Acute on Chronic? @ -[Acute Uncomplicated (without systemic symptoms) or Complicated (systemic symptoms)? @ -[Uncomplicated Side effects of treatment? @ -[No] Exacerbation, Progression, or Severe Exacerbation? @ -[No] Poses a threat to life or bodily function? How? (Chest pain, [place], [place], pneumonia, PE, COPD, DKA, ARF, appy, cholecystitis, CVA, Diverticulitis, Homicidal, Suicidal, threat to staff... and all critical care pts) @ -[No] - Lab Data Result diagrams: 02/27/24 23:31 02/27/24 23:31 Lab Results 02/27/24 02/27/24 02/27/24 Range/Units 23:31 23:31 23:31 WBC 6.0 (3.8-10.6) k/uL RBC 4.67 (4.30-5.90) m/uL Hgb 15.3 (13.0-17.5) gm/dL Hct 45.0 (39.0-53.0) % MCV 96.5 (80.0-100.0) fL MCH 32.7 (25.0-35.0) pg MCHC 33.9 (31.0-37.0) g/dL RDW 11.8 (11.5-15.5) % Plt Count 200 (150-450) k/uL MPV 8.1 Neutrophils % 59 % Lymphocytes % 34 % Monocytes % 5 % Eosinophils % 2 % Basophils % 1 % Neutrophils # 3.5 (1.3-7.7) k/uL Lymphocytes # 2.0 (1.0-4.8) k/uL Monocytes # 0.3 (0-1.0) k/uL Eosinophils # 0.1 (0-0.7) k/uL Basophils # 0.0 (0-0.2) k/uL Sodium 135 L (137-145) mmol/L Potassium 3.6 (3.5-5.1) mmol/L Chloride 108 H (98-107) mmol/L Carbon Dioxide 22 (22-30) mmol/L Anion Gap 5 mmol/L BUN 18 (9-20) mg/dL Creatinine 1.37 H (0.66-1.25) mg/dL Est GFR (CKD-EPI)AfAm 73 (>60 ml/min/1.73 sqM) Est GFR (CKD-EPI)NonAf 63 (>60 ml/min/1.73 sqM) Glucose 178 H (74-99) mg/dL Plasma Lactic Acid Maxime 1.4 (0.7-2.0) mmol/L Calcium 9.0 (8.4-10.2) mg/dL Total Bilirubin 0.6 (0.2-1.3) mg/dL AST 22 (17-59) U/L ALT 25 (4-49) U/L Alkaline Phosphatase 115 (38-126) U/L Total Protein 6.9 (6.3-8.2) g/dL Albumin 4.2 (3.5-5.0) g/dL Amylase 42 (30-110) U/L Lipase 162 (23-300) U/L Disposition Clinical Impression: Kidney stone on left side Disposition: HOME SELF-CARE Condition: Good Instructions (If sedation given, give patient instructions): Kidney Stones (ED) Prescriptions: Tamsulosin [Flomax] 0.4 mg PO DAILY #14 cap HYDROcodone/APAP 5-325MG [[place] 5-325] 1 tab PO Q6HR PRN 3 Days #12 tab PRN Reason: Pain Ondansetron Odt [Zofran ODT] 4 mg PO Q8HR PRN #10 tab PRN Reason: Nausea Is patient prescribed a controlled substance at d/c from ED?: Yes When asked, does pt state using other controlled substances?: No If prescribed controlled substance>3 days was MAPS reviewed?: Prescribed <3 Days If opioid is for acute pain is fill amount 7 days or less?: Yes If Rx opioid, was Start Talking consent form obtained?: Yes Referrals: Checo Beltran MD [Primary Care Provider] - 1-2 days Endy Rasmussen MD [STAFF PHYSICIAN] - 1-2 days
[2024-02-27 23:50] LABS: ALT 25 U/L (4-49); AST 22 U/L (17-59); African American GFR (CKD) 73 (>60 ml/min/1.73 sqM); Albumin 4.2 g/dL (3.5-5.0); Alkaline Phosphatase 115 U/L (38-126); Amylase 42 U/L (30-110); Anion Gap 5 mmol/L; Blood Urea Nitrogen 18 mg/dL (9-20); Carbon Dioxide 22 mmol/L (22-30); Chloride 108 mmol/L (98-107); Glucose 178 mg/dL (74-99); Lipase 162 U/L (23-300); Non-African American GFR(CKD) 63 (>60 ml/min/1.73 sqM); Potassium 3.6 mmol/L (3.5-5.1); Sodium 135 mmol/L (137-145); Total Bilirubin 0.6 mg/dL (0.2-1.3); Total Protein 6.9 g/dL (6.3-8.2)
[2024-02-27] MEDS: HYDROmorphone 1 MG/ML 1 ML SYRINGE IM STA (23:50)
[2024-02-27] MEDS: KETOROLAC 15 MG/ML 1 ML VIAL IM STA (23:51)
--- NOTE | 2024-02-28 00:36 | CT ---
EXAM: CT Abdomen and Pelvis Without Intravenous Contrast CLINICAL HISTORY: ITS.REASON CT Reason: L flank pain, stone suspected TECHNIQUE: Axial computed tomography images of the abdomen and pelvis without intravenous contrast. CTDI is 19.5 mGy and DLP is 1363.4 mGy-cm. This CT exam was performed using one or more of the following dose reduction techniques: automated exposure control, adjustment of the mA and/or kV according to patient size, and/or use of iterative reconstruction technique. COMPARISON: 02/27/2024. 05/23/2021. FINDINGS: Lung bases: Minimal scarring and subsegmental atelectasis noted near the lung bases. Heart: Heart is top normal in size. ABDOMEN: Liver: Fatty liver. Gallbladder and bile ducts: A 0.5 cm probable cluster polyp is noted within the gallbladder. No calcified stones. No ductal dilation. Pancreas: See below. Spleen: Spleen is normal in contour. Adrenals: The adrenal glands, the head, body, tail of the pancreas are unremarkable. Kidneys and ureters: Mild left hydronephrosis. Best seen on series 201 image 147, 0.2 cm obstructing calculus is noted at the left ureterovesical junction. A 0.2 cm nonobstructing right renal calculus. Stomach and bowel: Moderate quantity of ingested material in the stomach. Diverticulosis without diverticulitis. No bowel obstruction. PELVIS: Appendix: Appendix is seen on coronal image 69 and is unremarkable. Bladder: Unremarkable. No stones. Reproductive: Unremarkable as visualized. ABDOMEN and PELVIS: Intraperitoneal space: Unremarkable. No free air. No significant fluid collection. Bones/joints: No acute fracture. No dislocation. Soft tissues: Unremarkable. Vasculature: Unremarkable. No abdominal aortic aneurysm. Lymph nodes: Unremarkable. No enlarged lymph nodes. IMPRESSION: 1. 0.2 cm left ureterovesical junction calculus is noted causing mild left hydronephrosis and left hydroureter. 2. Cholelithiasis. 3. No right renal calculus or hydronephrosis. 4. Appendix is unremarkable. 5. No bowel obstruction.
--- NOTE | 2024-02-28 00:43 | XR ---
EXAM: XR Abdomen, 1 View CLINICAL HISTORY: ITS.REASON XR Reason: abdominal pain TECHNIQUE: Frontal supine view of the abdomen/pelvis. COMPARISON: 12/07/2020. FINDINGS: Gastrointestinal tract: Moderate quantity of stool throughout the colon. Nonspecific bowel gas pattern. No dilation. Organs: Unremarkable as visualized. No radiopaque renal papillary. Bones/joints: Osseous structures and soft tissues are unremarkable. No acute fracture. IMPRESSION: 1. Moderate quantity of stool throughout the colon. 2. Nonspecific bowel gas pattern.
[2024-02-28] MEDS: TAMSULOSIN 0.4 MG CAP.ER.24H PO STA (01:09)
[2024-02-28 01:25] VITALS: BP 130/85; PULSE 60; RESP 16
== END 2024-02-28 01:21 | disposition home or self-care (01) ==
LOC: EC 22:42
DX: N13.2 Hydronephrosis with renal and ureteral calculous obstruction (principal)
CPT/HCPCS: 36415; 80053; 82150; 83605; 83690; 85025; 74018; 74176; 99284; 96372 ×2; J1171; J1885

== ENCOUNTER 2024-02-28 22:00 | Emergency (ER) | payer BC, OTHER ==
[2024-02-28 22:03] VITALS: RESP 18; TEMP 98.2
[2024-02-28] MEDS: HYDROmorphone 1 MG/ML 1 ML SYRINGE IM STA (22:23)
[2024-02-28] MEDS: KETOROLAC 15 MG/ML 1 ML VIAL IM STA (22:24)
--- NOTE | 2024-02-28 23:43 | ED ---
Male Urogenital HPI - General Source: patient Mode of arrival: ambulatory Limitations: no limitations <Capri Dougherty - Last Filed: 02/29/24 00:21> - General Source: patient, RN notes reviewed Mode of arrival: ambulatory Limitations: no limitations <Sourav Tabor - Last Filed: 02/29/24 02:28> - General Chief complaint: Urogenital Stated complaint: Abd/Back Pain Time Seen by Provider: 02/28/24 22:06 - History of Present Illness Initial comments: 43-year-old male presenting with chief complaint of difficulty urinating. Patient was seen here last night and diagnosed with a 2 mm kidney stone on the left side.. He admits to pain in the left flank. Denies nausea or vomiting. No fevers or chills. No dysuria or hematuria. (Capri Dougherty) - Related Data Home Medications Medication Instructions Recorded Confirmed Lisdexamfetamine Dimesylate 70 mg PO DAILY 12/06/18 06/29/22 [Vyvanse] Omeprazole 40 mg PO DAILY 05/23/21 06/29/22 Dextroamphetamine/Amphetamine 30 mg PO DAILY 06/29/22 06/29/22 [Adderall] Previous Rx's Medication Instructions Recorded Ibuprofen [Motrin] 600 mg PO Q8HR PRN #30 tab 06/29/22 HYDROcodone/APAP 5-325MG [[place] 1 tab PO Q6HR PRN 3 Days #12 tab 02/28/24 5-325] Ondansetron Odt [Zofran ODT] 4 mg PO Q8HR PRN #10 tab 02/28/24 Tamsulosin [Flomax] 0.4 mg PO DAILY #14 cap 02/28/24 HYDROcodone/APAP 10-325MG [[place] 1 tab PO Q6HR PRN 3 Days #12 tab 02/29/24 10-325] Ketorolac [Toradol] 10 mg PO Q8HR #15 tab 02/29/24 Allergies Allergy/AdvReac Type Severity Reaction Status Date / Time No Known Allergies Allergy Verified 02/28/24 22:03 Review of Systems ROS Other: All systems not noted in ROS Statement are negative. <Capri Dougherty - Last Filed: 02/29/24 00:21> ROS Other: All systems not noted in ROS Statement are negative. <Sourav Tabor - Last Filed: 02/29/24 02:28> ROS Statement: Those systems with pertinent positive or pertinent negative responses have been documented in the HPI. Past Medical History Past Medical History: GERD/Reflux Additional Past Medical History / Comment(s): kidney stone, major family history of colon cancer History of Any Multi-Drug Resistant Organisms: None Reported Past Surgical History: Orthopedic Surgery Additional Past Surgical History / Comment(s): ORIF left shoulder surgery x3/ nose surgery/ left knee surgery, lt ankle, nose x 5 Past Anesthesia/Blood Transfusion Reactions: No Reported Reaction Additional Past Anesthesia/Blood Transfusion Reaction / Comment(s): no hx blood transfusion Past Psychological History: ADD/ADHD Smoking Status: Never smoker Past Alcohol Use History: Occasional Past Drug Use History: None Reported - Past Family History Mother Family Medical History: No Reported History <Capri Dougherty - Last Filed: 02/29/24 00:21> General Exam Limitations: no limitations General appearance: alert, in no apparent distress Head exam: Present: atraumatic, normocephalic, normal inspection Eye exam: Present: normal appearance, EOMI Neck exam: Present: normal inspection. Absent: meningismus Respiratory exam: Absent: respiratory distress Cardiovascular Exam: Present: regular rate GI/Abdominal exam: Present: soft, distended, tenderness. Absent: guarding, rebound, rigid Neurological exam: Present: alert, oriented X3 Psychiatric exam: Present: normal affect, normal mood Skin exam: Present: warm, dry <Capri Dougherty - Last Filed: 02/29/24 00:21> Course Vital Signs 02/28/24 22:02 Temperature 98.2 F Pulse Rate 72 Respiratory 18 Rate Blood Pressure 160/107 O2 Sat by Pulse 96 Oximetry Medical Decision Making <Capri Dougherty - Last Filed: 02/29/24 00:21> <Sourav Tabor - Last Filed: 02/29/24 02:28> - Medical Decision Making Was pt. sent in by a medical professional or institution (, PA, MACHINE STRAW HAT PRESSER, urgent care, hospital, or group home...) When possible be specific @ -[No] Did you speak to anyone other than the patient for history (EMS, parent, family, police, friend...)? What history was obtained from this source @ -[No] Did you review nursing and triage notes (agree or disagree)? Why? @ -[I reviewed and agree with nursing and triage notes] Were old charts reviewed (outside hosp., previous admission, EMS record, old EKG, old radiological studies, urgent care reports/EKG's, group home records)? Report findings @ -Yesterday's visit and CT scan showing 2 mm stone on the left side at the UVJ reviewed Differential Diagnosis (chest pain, altered mental status, abdominal pain women, abdominal pain men, vaginal bleeding, weakness, fever, dyspnea, syncope, headache, dizziness, GI bleed, back pain, seizure, CVA, palpatations, mental health, musculoskeletal)? @ - [facility] Differential Back Pain: Strain, zoster, cauda equina syndrome, epidural abscess, vertebral osteomyelitis, discitis, fracture, subluxation, disc herniation, DJD, spinal stenosis, dissection, AAA, pancreatitis, peptic ulcer disease, pyelonephritis, kidney stone this is not meant to be an all-inclusive list. EKG interpreted by me (3pts min.). @ -[As above] X-rays interpreted by me (1pt min.). @ -[None done] CT interpreted by me (1pt min.). @ -[None done] U/S interpreted by me (1pt. min.). @ -[None done] What testing was considered but not performed or refused? (CT, X-rays, U/S, labs)? Why? @ -[None] What meds were considered but not given or refused? Why? @ -[None] Did you discuss the management of the patient with other professionals (professionals i.e. , PA, MACHINE STRAW HAT PRESSER, lab, RT, psych nurse, clinical social work therapist, crane crew supervisor, teacher, correctional officer sergeant, patient case manager)? Give summary @ -[No] Was smoking cessation discussed for >3mins.? @ -[No] Was critical care preformed (if so, how long)? @ -[No] Were there social determinants of health that impacted care today? How? (Homelessness, low income, unemployed, alcoholism, drug addiction, transportation, low edu. Level, literacy, decrease access to med. care, snf, rehab)? @ -[No] Was there de-escalation of care discussed even if they declined (Discuss DNR or withdrawal of care, Hospice)? DNR status @ -[No] What co-morbidities impacted this encounter? (DM, HTN, Smoking, COPD, CAD, Cancer, CVA, ARF, Chemo, Hep., AIDS, mental health diagnosis, sleep apnea, morbid obesity)? @ -[None] Was patient admitted / discharged? Hospital course, mention meds given and route, prescriptions, significant lab abnormalities, going to OR and other pertinent info. @ -43-year-old male presenting with chief complaint of left-sided flank pain, seen here yesterday and diagnosed with a 2 mm kidney stone. States that today he is having difficulty urinating. Patient is given Toradol and Dilaudid, and is under control at this time. Ultrasound and UA are ordered, results are pending. Patient is signed out to Sourav Tabor PA-C pending results Undiagnosed new problem with uncertain prognosis? @ -[No] Drug Therapy requiring intensive monitoring for toxicity (Heparin, Nitro, Insulin, Cardizem)? @ -[No] Were any procedures done? @ -[No] Diagnosis/symptom? @ -[default] Acute, or Chronic, or Acute on Chronic? @ -[default] Uncomplicated (without systemic symptoms) or Complicated (systemic symptoms)? @ -[default] Side effects of treatment? @ -[No] Exacerbation, Progression, or Severe Exacerbation? @ -[No] Poses a threat to life or bodily function? How? (Chest pain, [place], [place], pneumonia, PE, COPD, DKA, ARF, appy, cholecystitis, CVA, Diverticulitis, Homicidal, Suicidal, threat to staff... and all critical care pts) @ -[No] (Capri Dougherty) Was patient admitted / discharged? Hospital course, mention meds given and route, prescriptions, significant lab abnormalities, going to OR and other pertinent info. @ -Discharge patient presented for left flank pain has been ongoing third visit to the ER for kidney stone. He has a follow-up ointment on Wednesday. Patient was provided analgesics pains improved. Patient vies increase fluid intake Ultrasound interpreted by me @Kidney bladder ultrasound showing mild left hydronephrosis Undiagnosed new problem with uncertain prognosis? @ -No Drug Therapy requiring intensive monitoring for toxicity (Heparin, Nitro, Insulin, Cardizem)? @ -No Were any procedures done? @ -No Diagnosis/symptom? @ -Left ureteral calculus Acute, or Chronic, or Acute on Chronic? @ -Acute Uncomplicated (without systemic symptoms) or Complicated (systemic symptoms)? @ -Uncomplicated Side effects of treatment? @ -No Exacerbation, Progression, or Severe Exacerbation? @ -No Poses a threat to life or bodily function? How? (Chest pain, [place], [place], pneumonia, PE, COPD, DKA, ARF, appy, cholecystitis, CVA, Diverticulitis, Homicidal, Suicidal, threat to staff... and all critical care pts) @ -No (Sourav Tabor) - Lab Data Lab Results 02/29/24 Range/Units 00:03 Urine Color Colorless Urine Appearance Clear (Clear) Urine pH 5.5 (5.0-8.0) Ur Specific [place] 1.018 (1.001-1.035) Urine Protein Negative (Negative) Urine Glucose (UA) Trace H (Negative) Urine Ketones Negative (Negative) Urine Blood Large H (Negative) Urine Nitrite Negative (Negative) Urine Bilirubin Negative (Negative) Urine Urobilinogen <2.0 (<2.0) mg/dL Ur Leukocyte Esterase Negative (Negative) Urine RBC 14 H (0-5) /hpf Urine WBC 7 H (0-5) /hpf Ur Squamous Epith Cells <1 (0-4) /hpf Urine Mucus Rare H (None) /hpf Disposition <Capri Dougherty - Last Filed: 02/29/24 00:21> Is patient prescribed a controlled substance at d/c from ED?: Yes When asked, does pt state using other controlled substances?: Yes If prescribed controlled substance>3 days was MAPS reviewed?: Prescribed <3 Days If opioid is for acute pain is fill amount 7 days or less?: Yes If Rx opioid, was Start Talking consent form obtained?: Yes Time of Disposition: 02:24 <Sourav Tabor - Last Filed: 02/29/24 02:28> Clinical Impression: Left ureteral calculus Disposition: HOME SELF-CARE Condition: Stable Instructions (If sedation given, give patient instructions): Kidney Stones (ED) Additional Instructions: Please return to the Emergency Department if symptoms worsen or any other concerns. Prescriptions: HYDROcodone/APAP 10-325MG [[place] 10-325] 1 tab PO Q6HR PRN 3 Days #12 tab PRN Reason: pain Ketorolac [Toradol] 10 mg PO Q8HR #15 tab Referrals: Checo Beltran MD [Primary Care Provider] - 1-2 days
[2024-02-29 00:45] LABS: Appearance,Urine Clear (Clear); Bilirubin,Urine Negative (Negative); Blood,Urine Large (Negative); Color,Urine Colorless; Glucose,Urine (UA) Trace (Negative); Ketones,Urine Negative (Negative); Leukocyte Esterase,Urine Negative (Negative); Mucus,Urine Rare /hpf; Nitrite,Urine Negative (Negative); PH, Urine 5.5 (5.0-8.0); Protein,Urine Negative (Negative); RBC,Urine 14 /hpf (0-5); Specific Gravity,Urine 1.018 (1.001-1.035); Squamous Epithelial Cell,Urine <1 /hpf (0-4); Urobilinogen,Urine <2.0 mg/dL (<2.0); WBC,Urine 7 /hpf (0-5)
--- NOTE | 2024-02-29 01:40 | US ---
EXAM: US Retroperitoneal Limited, Renal CLINICAL HISTORY: ITS.[email or web address] US Reason: L sided kidney stone, difficulty urinating TECHNIQUE: Real-time limited ultrasound of the retroperitoneum with image documentation. COMPARISON: CT abdomen and pelvis 02/27/24 FINDINGS: Limitations: Bowel gas. Right kidney: Unremarkable. Right kidney measures 10.6 cm. No hydronephrosis, mass, cyst, or stone. Left kidney: Left kidney measures 11.7 cm. No mass, cyst, or stone. Mild hydronephrosis of left kidney. Bladder: Ureteral jets not identified at the level of the urinary bladder during the course of exam. IMPRESSION: Mild hydronephrosis of left kidney.
[2024-02-29] MEDS: HYDROmorphone 1 MG/ML 1 ML SYRINGE IM STA (01:52)
[2024-02-29] MEDS: HYDROcodone/APAP 10-325MG 1 EACH TAB PO ONE (02:34)
[2024-02-29 02:52] VITALS: BP 130/85; PULSE 79
== END 2024-02-29 02:39 | disposition home or self-care (01) ==
LOC: EC 22:00
DX: N20.1 Calculus of ureter (principal)
CPT/HCPCS: 96372 ×3; 76770; 99285; J1171; J1885; 81001; 99284